=== PATIENT | female | born 2000 | race Caucasian/White ===

== ENCOUNTER 2023-04-29 21:36 | Emergency (ER) | payer SELFPAY ==
--- NOTE | 2023-04-29 21:39 | XRR_ITS ---
PROCEDURE INFORMATION: Exam: XR Chest Exam date and time: 04/29/2023 9:48 PM Age: 22 years old Clinical indication: Pain; Chest pressure; Prior surgery; Surgery date: 6+ months; Surgery type: Amrita rods; Additional info: Cp TECHNIQUE: Imaging protocol: Radiologic exam of the chest. Views: 1 view. COMPARISON: No relevant prior studies available. FINDINGS: Lungs: There is consolidation in the lateral aspect of the left lower lobe consistent with pneumonia. There is also some patchy infiltrate in the retrocardiac left lower lobe. Visualized portions of the right lung are clear. Pleural spaces: Unremarkable. No pleural effusion. No pneumothorax. Heart/Mediastinum: Unremarkable. No cardiomegaly. Bones/joints: There are postsurgical changes in the thoracic spine with bilateral Kilpatrick rods and pedicle screws at multiple levels. XR/XR chest 1V portable [id number] IMPRESSION: Left lower lobe pneumonia.
[2023-04-29 21:40] VITALS: BP 127/78; PULSE 117; RESP 18; TEMP 36.7; O2SAT 96; BMI 17.2
--- NOTE | 2023-04-29 22:01 | ED_ITS ---
HPI - URI/Sore Throat General: Chief Complaint: Upper Respiratory Infection Stated Complaint: chest pain/ sob Time Seen by Provider: 04/29/23 21:41 Source: patient Mode of arrival: ambulatory Limitations: no limitations History of Present Illness: 22-year-old female who states she has been having fevers all body aches cough over the last 5 to 6 days. States she has been having worsening cough and sh ortness of breath today. She denies any vomiting or diarrhea she denies any chest pain she is in slight distress here mild hypoxia. Associated symptoms: Reports fever(s); Deny abdominal pain, chills, chest pain, diarrhea, nausea or vomiting Review of Systems Const: Reports: fever(s) and body aches; Denies: chills or change in appetite Eyes: Denies: blurry vision or eye discomfort ENMT: Denies: throat pain or dental pain Card: Denies: chest pain Resp: Reports: dyspnea and non-productive cough GI: Denies: abdominal pain, nausea, vomiting or diarrhea Musc: Denies: neck pain or back pain Skin/Breast: Denies: rash All/Imm: Denies: urticaria Physical Exam Const: COMMON NORMALS: patient oriented x3 GENERAL APPEARANCE: ill appearing HENMT: COMMON NORMALS: normocephalic and atraumatic HEAD & SCALP: normocephalic and atraumatic Eye: COMMON NORMALS: Equal, round and reactive pupils present and EOMs intact bilaterally PUPIL: Yes Equal, round and reactive pupils present Neck/C-Spine: COMMON NORMALS: full ROM and supple Chest: COMMONS NORMALS: normal inspection of the chest and normal palpation of entire chest wall Resp: COMMON NORMALS: No retractions and No use of accessory muscles AUSCULTATION: rales on the left at the base Cardio: COMMON NORMALS: regular rhythm and No murmurs present (Cardio) RATE: tachycardic RHYTHM: regular rhythm GI: COMMON NORMALS: Normal to inspection, nondistended, normoactive bowel sounds present, Soft to palpation, non-tender and no masses PALPATION: Yes Soft to palpation Extremity: COMMON NORMALS: normal to inspection and full ROM Neuro: COMMON NORMALS: patient oriented x3, moves all extremities and no focal motor deficits Psych: COMMON NORMALS: mental status grossly normal, Normal thought process present and cooperative THOUGHT PROCESS: Normal thought process present Skin: COMMON NORMALS: no rashes or lesions noted and no wounds GENERAL SKIN EXAM: no rashes or lesions noted Course Vital Signs: Vital signs: Vital Signs Temperature 98.0 F 04/29/23 21:40 Pulse Rate 91 04/29/23 22:13 Respiratory Rate 20 H 04/29/23 22:13 Blood Pressure 125/77 04/29/23 22:13 Pulse Oximetry 94 04/29/23 22:13 Oxygen Delivery Me thod Room Air 04/29/23 22:13 MDM - URI/Sore Throat Medical Decision Making Patient presents here with a left lower lobe pneumonia. Oxygen level here has been normal she is afebrile has a normal white count did give her IV antibiotics I did offer her admission she states she would like to trial oral antibiotics at home first. She is not hypoxic here we will discharge her on doxycycline and informed if she has any worsening shortness of breath or worsening symptoms she is to return immediately she understands agrees to plan. Medical Records I reviewed the patient's medical records. Lab Data I reviewed the patient's lab results. 04/29/23 22:19 04/29/23 22:19 Radiology Impressions Chest X-Ray 04/29/23 21:39 IMPRESSION: Left lower lobe pneumonia. Laboratory Results WBC 9.11 10^3/uL (3.29-11.43) 04/29/23 22:19 RBC 4.82 10^6/uL (3.85-5.65) 04/29/23 22:19 Hgb 13.40 g/dL (11.27-16.99) 04/29/23 22:19 Hct 40.9 % (36-47) 04/29/23 22:19 MCV 84.9 fl (85-98) L 04/29/23 22:19 MCH 27.8 pg (27-33) 04/29/23 22:19 MCHC 32.8 g/dL (30-55) 04/29/23 22:19 RDW 13.0 % (12.1-15.1) 04/29/23 22:19 Plt Count 260 10^3/cmm (157-399) 04/29/23 22:19 MPV 9.5 fL (7.4-10.4) 04/29/23 22:19 Neut % (Auto) 76.5 % 04/29/23 22:19 Lymph % (Auto) 12.1 % 04/29/23 22:19 [place] % (Auto) 10.6 % 04/29/23 22:19 Eos % (Auto) 0.4 % 04/29/23 22:19 Baso % (Auto) 0.2 % 04/29/23 22:19 Neut # (Auto) 6.96 10^3/uL (1.8-7.7) 04/29/23 22:19 Lymph # (Auto) 1.1 10^3/uL (0.8-4.8) 04/29/23 22:19 [place] # (Auto) 1.0 10^3/uL (0.2-0.9) H 04/29/23 22:19 Eos # (Auto) 0.0 10^3/uL (0.0-0.8) 04/29/23 22:19 Baso # (Auto) 0.0 10^3/uL (0.0-0.1) 04/29/23 22:19 Nucleated RBC % (auto) 0 % 04/29/23 22:19 Nucleated RBCs # 0.0 /100WBC 04/29/23 22:19 Sodium 134 mmol/L (136-145) L 04/29/23 22:19 Potassium 4.2 mmol/L (3.5-5.1) 04/29/23 22:19 Chloride 97 mmol/L (98-107) L 04/29/23 22:19 Carbon Dioxide 28 mmol/L (22-29) 04/29/23 22:19 Anion Gap 13.2 (5-19) 04/29/23 22:19 BUN 12 mg/dL (6-20) 04/29/23 22:19 Creatinine 0.5 mg/dL (0.5-0.9) 04/29/23 22:19 GFR Calculation 151.6 mL/min (90-130) H 04/29/23 22:19 Glucose 116 mg/dL (65-115) H 04/29/23 22:19 Calculated Osmolality 279 mOsm/kg (285-295) L 04/29/23 22:19 Calcium 9.0 mg/dL (8.5-10.5) 04/29/23 22:19 Total Bilirubin 0.3 mg/dL (0.15-1.2) 04/29/23 22:19 AST 21 U/L (0-32) 04/29/23 22:19 ALT 14 U/L (0-33) 04/29/23 22:19 Alkaline Phosphatase 82 U/L (35-105) 04/29/23 22:19 Total Protein 7.6 g/dL (6.6-8.7) 04/29/23 22:19 Albumin 4.4 g/dL (3.5-5.2) 04/29/23 22:19 Globulin 3.2 g/dL (1.3-4.6) 04/29/23 22:19 HCG, Qual Negative (Negative) 04/29/23 22:19 Discharge Plan Discharge Patient Disposition: Home Clinical Impression: Pneumonia Condition: Stable Prescriptions: New doxycycline hyclate 100 mg tablet 100 mg PO BID 10 Days Qty: 20 0RF Discharge Orders: Discharge ED (Routine); Ordered 04/29/23 Ordered By: Luis Vernon Discharge Diet: Advance as tolerated Discharge Activity: Resume usual activity Patient Instructions: Pneumonia (ED) Coding Level of Care Code ED [employer] for Demetri Calloway
[2023-04-29 22:13] VITALS: BP 125/77; PULSE 91; RESP 20; O2SAT 94
[2023-04-29] MEDS: sodium chloride 0.9% 1,000 ML 999 ML IV (22:24)
[2023-04-29] MEDS: cefTRIAXone 1,000 MG in sodium chloride 0.9% (plus) 50 ML 100 MG IV (22:24)
[2023-04-29 22:34] LABS: Basophils % 0.2 %; Eosinophils % 0.4 %; Hematocrit 40.9 % (36-47); Lymphocytes # 1.1 10^3/uL (0.8-4.8); Lymphocytes % 12.1 %; Mean Corpuscular HGB Conc 32.8 g/dL (30-55); Mean Corpuscular Hemoglobin 27.8 pg (27-33); Mean Corpuscular Volume 84.9 fl (85-98); Mean Platelet Volume 9.5 fL (7.4-10.4); Monocytes % 10.6 %; Neutrophils # 6.96 10^3/uL (1.8-7.7); Neutrophils % 76.5 %; Nucleated Red Blood Cells % 0 %; Platelet Count 260 10^3/cmm (157-399); Red Blood Count 4.82 10^6/uL (3.85-5.65); White Blood Count 9.11 10^3/uL (3.29-11.43)
[2023-04-29 22:46] LABS: HCG, Serum Qual Negative (Negative)
[2023-04-29] MEDS: azithromycin 500 MG in sodium chloride 0.9% 250 ML 250 MG IV (22:49)
[2023-04-29 22:51] LABS: Alanine Aminotransferase 14 U/L (0-33); Albumin Level 4.4 g/dL (3.5-5.2); Alkaline Phosphatase 82 U/L (35-105); Anion Gap 13.2 (5-19); Aspartate Amino Transferase 21 U/L (0-32); Blood Urea Nitrogen 12 mg/dL (6-20); Carbon Dioxide 28 mmol/L (22-29); Chloride 97 mmol/L (98-107); Globulin 3.2 g/dL (1.3-4.6); Glomerular Filtration Rate 151.6 mL/min (90-130); Glucose 116 mg/dL (65-115); Osmolality Calculated 279 mOsm/kg (285-295); Potassium 4.2 mmol/L (3.5-5.1); Sodium 134 mmol/L (136-145); Total Bilirubin 0.3 mg/dL (0.15-1.2); Total Protein 7.6 g/dL (6.6-8.7)
[2023-04-29 23:19] VITALS: BP 107/67; PULSE 96; RESP 17; O2SAT 96
[2023-04-29 23:55] LABS: Adenovirus Not Detected (NOT DETECT); Chlamydia Pneumoniae Not Detected (NOT DETECT); Coronavirus 229E,HKU1,NL63,OC4 Not Detected (NOT DETECT); Human Metapneumovirus Not Detected (NOT DETECT); Human Rhinovirus/Enterovirus Not Detected (NOT DETECT); Influenza A Not Detected (NOT DETECT); Influenza A H1 Not Detected (NOT DETECT); Influenza A H1-2009 Not Detected (NOT DETECT); Influenza A H3 Not Detected (NOT DETECT); Influenza B Not Detected (NOT DETECT); Mycoplasma Pneumoniae Not Detected (NOT DETECT); Parainfluenza Virus Type 1 Not Detected (NOT DETECT); Parainfluenza Virus Type 2 Not Detected (NOT DETECT); Parainfluenza Virus Type 3 Not Detected (NOT DETECT); Parainfluenza Virus Type 4 Not Detected (NOT DETECT); Respiratory Syncytial Virus A Not Detected (NOT DETECT); Respiratory Syncytial Virus B Not Detected (NOT DETECT); SARS-COV-2 Not Detected (NOT DETECT)
[2023-04-29 23:56] VITALS: BP 107/74; PULSE 103; RESP 22; O2SAT 98
== END 2023-04-29 23:57 | disposition home or self-care (01) ==
PROVIDERS: Emergency Provider Emergency Medicine
DX: J18.9 Pneumonia, unspecified organism (principal); Z20.822 Contact with and (suspected) exposure to COVID-19
CPT/HCPCS: 36415; 71045; 80053; 84703; 85025; 87040; 87635; 96365; 96367; 99285; J0456; J0696; J7030; J7050

== ENCOUNTER 2023-08-14 00:49 | Emergency (ER) | payer SELFPAY ==
[2023-08-14 00:59] VITALS: BP 134/84; PULSE 68; RESP 14; TEMP 36.3; O2SAT 99
--- NOTE | 2023-08-14 01:06 | XRR_ITS ---
PROCEDURE INFORMATION: Exam: XR Left Wrist Exam date and time: 08/14/2023 1:11 AM Age: 22 years old Clinical indication: Wrist; Left; Patient HX: Carpal pain; Additional info: Fall/pain TECHNIQUE: Imaging protocol: Radiologic exam of the left wrist. Views: 3 or more views. COMPARISON: No relevant prior studies available. FINDINGS: Bones/joints: Acute nondisplaced fracture of the distal dorsoulnar aspect of the hamate. Soft tissues: Mild regional soft tissue swelling about the fracture. XR/XR wrist LT min 3V* [id number] IMPRESSION: Acute nondisplaced fracture of the distal dorsoulnar aspect of the hamate.
--- NOTE | 2023-08-14 01:06 | W.ED.EXTPRO ---
HPI - Extremity Problem General: Chief complaint: Extremity Injury, Upper Stated complaint: Rt Wrist Injury Time Seen by Provider: 08/14/23 00:55 History of Present Illness: 22-year-old female presents to the emergency department with complaints of left wrist pain. She states she had an accidental misstep and tripped over her foot following with her hand stretched out causing her to have left wrist pain. She states she is able to move it but states it feels like it is intermittently having muscle pain twinges. She has no obvious or gross deformity noted. Capillary refills less than 3 seconds. She denies any additional injuries. She states her pain is more of a throbbing type pain that is a 2 out of 10. Review of Systems General: Reports: 10 or more systems reviewed and unremarkable except in HPI and below Musc: Reports: extremity pain and joint pain [facility] ED PFSH: Medical History (Updated 09/10/23 @ 06:35 by Ryan Ferguson MD) LLL pneumonia Back pain with history of spinal surgery Scoliosis Family History (Updated 05/23/23 @ 10:13 by Francesca Thao LPN) Father Thao infection Mother No problems noted. Social History (Updated 05/23/23 @ 10:13 by Francesca Thao LPN) Smoking and tobacco/nicotine status: never used tobacco/nicotine Alcohol intake: never Substance/Drug Use: never Physical Exam Narrative: EXAM NARRATIVE: Constitutional: the patient appears well nourished and of normal development. Vital signs as documented. No acute distress at present. Alert and oriented-to person, place, time and situation. Head, eyes, ears, nose, mouth, throat: Normocephalic, atraumatic. Pupils-equal, round, reactive to light. No scleral icterus. Normal-appearing external ears. Normal appearing nasal turbinates, no drainage. No obvious oral lesions, posterior oropharynx without erythema or exudates. Neck: Supple, trachea is midline, no lymphadenopathy, no jugular venous distension, thyromegaly, or carotid bruits. Carotid upstrokes are brisk bilaterally. Lungs: clear to auscultation to all lung jimenez. Symmetrical rise and fall of chest, no obvious signs of increased work of breathing at present. Cardiac: Regular rate and rhythm, positive S1, S2. No murmurs, rubs or gallops that I can appreciate Abdomen: Soft, non-tender to palpation, normal active bowel sounds to all quadrants. No palpable masses, no organomegaly and abdominal bruits. Extremities: 2+ pulses in the upper extremities that are equal bilaterally, 2+ pulses in the lower extremities that are equal bilaterally. Non-edematous. Moves all extremities well, sensation to all extremities are noted. Left wrist medial aspect tender to palpation Skin: Warm, dry, intact. Course ED course: I reviewed the radiographic examination and determined the need for stabilization via splint. A left Velcro wrist splint was utilized. The splint was ordered and placed by the nursing staff, under the direct supervision of myself (ER Physician. The patient's neurovascular status was evaluated and was intact before and after the application of the splint. Capillary refill was less than 3 seconds before and after the application. The patient was splinted and the most appropriate anatomical and functional position at that time. Anticipatory guidance, return precautions and red flag precautions were provided to the patient and support person. The patient/support person was advised to contact the patient's primary care provider or Orthopedic provider to make a follow-up appointment for additional evaluation and treatment within the next 3-5 days. Vital Signs: Vital signs: Vital Signs Temperature 97.4 F L 08/14/23 00:59 Pulse Rate 78 08/14/23 01:55 Respiratory Rate 14 08/14/23 00:59 Blood Pressure 134/84 08/14/23 00:59 Pulse Oximetry 100 08/14/23 01:55 Oxygen Delivery Me thod Room Air 08/14/23 00:59 MDM - Extremity (Nontraumatic) Medical Decision Making Physical exam completed and documented, I will provide radiographic examination and a splint. Medical Records I reviewed the patient's medical records. Lab Data Radiology Impressions Wrist X-Ray 08/14/23 01:06 IMPRESSION: Acute nondisplaced fracture of the distal dorsoulnar aspect of the hamate. All radiology interpretation(s) finalized by discharge Discharge Plan Discharge Patient Disposition: Home Clinical Impression: Sprain and strain of wrist, Fracture of wrist Condition: Stable Prescriptions: No Action No Known Home Medications Discharge Orders: Discharge ED (Routine); Ordered 08/14/23 Ordered By: Ryan Ferguson Discharge Diet: Advance as tolerated Discharge Activity: Resume usual activity Patient Instructions: Opioid Safety, Pain Management Activity Restrictions/Additional Instructions: Activity Restrictions/Additional Instructions: Thank you for choosing [facility] for your healthcare needs today. Please realize that you were seen in the Emergency Department and that we are providing you with an emergency medical screening exam and this may not be a complete and all inclusive of all the testing and or medical work-up that you may need to determine your ailment or severity of your illness. It is very important that you follow-up as instructed with your Primary care provider or Specialist for additional evaluation and to discuss your medical treatment plan. You may return to the Emergency Department should you have concerns or if your condition changes or worsens in any way. Coding Level of Care Code ED Custodial Maintenance Worker for Demetri Calloway
[2023-08-14 01:55] VITALS: PULSE 78; O2SAT 100
== END 2023-08-14 01:57 | disposition home or self-care (01) ==
PROVIDERS: Emergency Provider Internal Medicine
DX: S63.502A Unspecified sprain of left wrist, initial encounter (principal); S66.912A Strain of unspecified muscle, fascia and tendon at wrist and hand level, left hand, initial encounter; S62.145A Nondisplaced fracture of body of hamate [unciform] bone, left wrist, initial encounter for closed fracture; W18.09XA Striking against other object with subsequent fall, initial encounter
CPT/HCPCS: 73110; 99283

== ENCOUNTER 2023-09-11 20:02 | Emergency (ER) | payer SELFPAY ==
--- NOTE | 2023-09-11 20:05 | XRR_ITS ---
PROCEDURE INFORMATION: Exam: XR Chest Exam date and time: 09/11/2023 8:16 PM Age: 22 years old Clinical indication: Cough TECHNIQUE: Imaging protocol: Radiologic exam of the chest. Views: 1 view. COMPARISON: CR (CHEST, ) 04/29/2023 9:48 PM FINDINGS: Lungs: Mild atelectasis or infiltrate at the lung bases. Pleural spaces: Unremarkable. No pleural effusion. No pneumothorax. Heart/Mediastinum: Unremarkable. No cardiomegaly. Bones/joints: Kilpatrick rods. XR/XR chest 1V portable [id number] IMPRESSION: Mild bibasilar atelectasis or infiltrates.
[2023-09-11 20:42] VITALS: BP 108/76; PULSE 102; RESP 16; TEMP 37.1; O2SAT 99
--- NOTE | 2023-09-11 21:29 | W.ED.GENADLT ---
HPI - General Adult General: Chief complaint: General Medical Stated complaint: sob, hard coughing with mucus Time Seen by Provider: 09/11/23 21:09 Source: patient Mode of arrival: ambulatory Limitations: no limitations History of Present Illness: 22-year-old female states that she has had cough congestion with some yellow mucus last 2 days states her symptoms are actually improved today denies any fever denies any dyspnea she denies any worsening improving factors. She has had sick contacts. Associated symptoms: Deny chest pain, dyspnea, headache(s), nausea, rash or vomiting Review of Systems Const: Denies: fever(s), chills, body aches or change in appetite ENMT: Denies: throat pain or dental pain Card: Denies: chest pain Resp: Reports: non-productive cough; Denies: dyspnea GI: Denies: abdominal pain, nausea, vomiting or diarrhea Musc: Denies: neck pain or back pain Skin/Breast: Denies: rash Neuro: Denies: headache(s) PFS ED PFSH: Medical History LLL pneumonia Back pain with history of spinal surgery Scoliosis Family History Father Thao infection Mother No problems noted. Social History Smoking and tobacco/nicotine status: never used tobacco/nicotine Alcohol intake: never Substance/Drug Use: never Physical Exam Const: COMMON NORMALS: no acute distress, patient oriented x3 and healthy appearing HENMT: COMMON NORMALS: normocephalic and atraumatic HEAD & SCALP: normocephalic and atraumatic Eye: COMMON NORMALS: Equal, round and reactive pupils present and EOMs intact bilaterally PUPIL: Yes Equal, round and reactive pupils present Neck/C-Spine: COMMON NORMALS: full ROM and supple Chest: COMMONS NORMALS: normal inspection of the chest Resp: COMMON NORMALS: normal respiratory effort, No retractions, No use of accessory muscles and clear to auscultation bilaterally AUSCULTATION: clear to auscultation bilaterally Cardio: COMMON NORMALS: regular rate, regular rhythm and No murmurs present (Cardio) RATE: regular rate RHYTHM: regular rhythm Extremity: COMMON NORMALS: normal to inspection and full ROM Neuro: COMMON NORMALS: patient oriented x3, moves all extremities and no focal motor deficits Psych: COMMON NORMALS: mental status grossly normal, Normal thought process present and cooperative THOUGHT PROCESS: Normal thought process present Skin: COMMON NORMALS: no rashes or lesions noted and no wounds GENERAL SKIN EXAM: no rashes or lesions noted Course Vital Signs: Vital signs: Vital Signs Temperature 98.8 F 09/11/23 20:42 Pulse Rate 102 H 09/11/23 20:42 Respiratory Rate 16 09/11/23 20:42 Blood Pressure 108/76 09/11/23 20:42 Pulse Oximetry 99 09/11/23 20:42 MDM - General Adult Medical Decision Making Patient presents here with influenza x-ray shows no pneumonia she is stable for discharge follow-up with PCP and return if worsening Medical Records I reviewed the patient's medical records. Lab Data I reviewed the patient's lab results. Laboratory Results Influenza Type A Ag positive (Negative) H 09/11/23 21:15 Influenza Type B Ag negative (Negative) 09/11/23 21:15 SARS-CoV-2 Ag (Rapid) negative (Negative) 09/11/23 21:15 XR interpretation done by ED provider, pending radiology final review ED provider radiology interpretation(s): cxr: no acute abnormality Discharge Plan Discharge Patient Disposition: Home Clinical Impression: Influenza Condition: Stable Prescriptions: No Action No Known Home Medications Discharge Orders: Discharge ED (Routine); Ordered 09/11/23 Ordered By: Luis Vernon Discharge Diet: Advance as tolerated Discharge Activity: Resume usual activity Patient Instructions: Influenza (ED) Coding Level of Care Code ED Laundry Route Driver for Demetri Calloway
[2023-09-11 21:32] LABS: Influenza A by IFA positive (Negative); Influenza B by IFA negative (Negative)
[2023-09-11 21:44] LABS: SARS Covid-2 Antigen negative (Negative)
[2023-09-11 22:03] VITALS: BP 108/76; PULSE 102; RESP 16; TEMP 37.1; O2SAT 99
== END 2023-09-11 22:04 | disposition home or self-care (01) ==
PROVIDERS: Emergency Provider Emergency Medicine
DX: J11.1 Influenza due to unidentified influenza virus with other respiratory manifestations (principal); Z11.52 Encounter for screening for COVID-19
CPT/HCPCS: 71045; 87426; 87804; 99284

== ENCOUNTER → 2024-07-20 14:58 | Outpatient (BNVA) | payer SELFPAY | DX: R39.9 Unspecified symptoms and signs involving the genitourinary system (principal) | CPT/HCPCS: 81000 ==

== ENCOUNTER → 2024-08-10 14:33 | Outpatient (BNVA) | payer OTHER, SELFPAY | PROVIDERS: Visit Provider Registered Nurse Neonatal Intensive Care | DX: R39.9 Unspecified symptoms and signs involving the genitourinary system (principal); N39.0 Urinary tract infection, site not specified | CPT/HCPCS: 81000; 87086 ==

== ENCOUNTER 2025-02-12 10:28 | Inpatient (IN) | payer SELFPAY ==
[2025-02-12] VITALS (27 sets, daily range): BP systolic 80–111; BP diastolic 50–72; PULSE 73–120; RESP 16–31; TEMP 36.6–39.4; O2SAT 93–100; BMI 19.3
--- NOTE | 2025-02-12 10:37 | XRR_ITS ---
PROCEDURE INFORMATION: Exam: XR Chest Exam date and time: 02/12/2025 10:48 AM Age: 24 years old Clinical indication: Shortness of breath; Prior surgery; Surgery date: 6+ months; Surgery type: Amrita rods; SOB; Abdominal pain TECHNIQUE: Imaging protocol: Radiologic exam of the chest. Views: 1 view. COMPARISON: CR XR chest 1V portable [id number] 09/11/2023 8:16 PM FINDINGS: Lungs: Mild left basilar atelectasis. No focal consolidation. Pleural spaces: Unremarkable. No pleural effusion. No pneumothorax. Heart/Mediastinum: Unremarkable. No cardiomegaly. Bones/joints: No acute osseous abnormality. Stable Kilpatrick rods in the thoracic spine. XR/XR chest 1V portable [id number] IMPRESSION: Mild left basilar atelectasis. No focal consolidation or pneumothorax.
--- NOTE | 2025-02-12 10:44 | ED_ITS ---
HPI - Abdominal Pain 2 General: Chief Complaint: Abdominal Pain Stated Complaint: constipated Time Seen by Provider: 02/12/25 10:32 History of Present Illness: 24-year-old female who presents the [facility] room with complaints of constipation, nausea and vomiting, and fever. She says she was constipated and took some medication for it yesterday and had a bowel movement but still feels like she is constipated. She has been having low mid abdominal pain. Says she has not been able to keep anything down since yesterday. states she had a temp of 103 at home. He has been treating it and its come down some. Related Data Home Medications ?Medication ?Instructions ?Recorded ?Confirmed ibuprofen 200 mg tablet (Advil) 400 mg PO Q6H PRN Feve r Or Pain 02/12/25 02/12/25 Allergies Allergy/AdvReac Type Severity Reaction Status Date / Time No Known Allergies Allergy Verified 08/10/24 14:28 Review of Systems 2 Narrative: Constitutional symptoms: Negative except as documented in HPI. Skin symptoms: Negative except as documented in HPI. Eye symptoms: Negative except as documented in HPI. ENMT symptoms: Negative except as documented in HPI. Respiratory symptoms: Negative except as documented in HPI. Cardiovascular symptoms: Negative except as documented in HPI. Gastrointestinal symptoms: Negative except as documented in HPI. Genitourinary symptoms: Negative except as documented in HPI. Musculoskeletal symptoms: Negative except as documented in HPI. Neurologic symptoms: Negative except as documented in HPI. Psychiatric symptoms: Negative except as documented in HPI. Endocrine symptoms: Negative except as documented in HPI. PFSH ED 2 PFSH: Medical History LLL pneumonia Back pain with history of spinal surgery Scoliosis Family History Father Thao infection Mother No problems noted. Social History Smoking and tobacco/nicotine status: never used tobacco/nicotine Alcohol intake: never Substance/Drug Use: never Physical Exam 2 Narrative: EXAM NARRATIVE: General: Alert, no acute distress. Skin: Warm, dry. Head: Normocephalic, atraumatic. Neck: Supple, trachea midline. Eye: Extraocular movements are intact. Ears, nose, mouth and throat: Tacky oral mucosa Cardiovascular: Regular, Normal peripheral perfusion. Respiratory: Lungs are clear to auscultation, respirations are non-labored, breath sounds are equal, Symmetrical chest wall expansion. Gastrointestinal: Soft, some low central abdominal tenderness, Non distended Musculoskeletal: Normal ROM, no deformity. Neurological: Alert and oriented, No focal neurological deficit observed. Psychiatric: Cooperative, appropriate mood & affect. Course 2 Vital Signs: Vital signs: Vital Signs Temperature 97.9 F 02/12/25 10:42 Pulse Rate 109 H 02/12/25 10:42 Respiratory Rate 18 02/12/25 10:42 Blood Pressure 106/71 02/12/25 10:42 Pulse Oximetry 97 02/12/25 10:42 Oxygen Delivery Me thod Room Air 02/12/25 10:42 MDM - Abdominal Pain Medical Decision Making Medical decision making: Differential diagnosis for this patient with nausea and vomiting including but not limited to and based on the above HPI, review of systems and physical exam: Urinary tract infection. Appendicitis. Cholecystitis. Colitis. small bowel obstruction. crohn's flare. pancreatitis. gastritis. peptic ulcer. cyclic vomiting. Viral illness. Influenza. COVID. Orders placed to evaluate differential diagnosis based on the above differential, HPI and physical exam Lab Review: Laboratory results were reviewed and interpreted by myself the emergency room physician. Patient has significant leukocytosis with a white count of 26,000. Lactate is negative at 1.1. Urinalysis is positive for infection with 50-100 whites leukocyte Estrace positive and 2+ bacteria. Nitrate negative. CT of the chest abdomen pelvis with contrast: This was ordered to evaluate for source of sepsis. She was complaining of some right chest pain. Left flank pain. This shows left pyelonephritis which is consistent with exam. This was reviewed and interpreted by myself the emergency room physician. I also reviewed the radiology report. I reviewed the patient's medical record. Reexamination: Patient's blood pressure is in the 90 systolic upon admission. No altered mental status. No increased work of breathing. I discussed findings and admission with the patient and her Consultation: I spoke with Dr. Nunez who is on-call for the hospital service who agrees to admission. Assessment and plan: Pyelonephritis Sepsis ?Urinary source of sepsis/pyelonephritis. -2 L normal saline bolus. (30 mL/kg section 1.3 L but just rounded up to 2 L.) -antibiotics were administered. Cefepime -Sepsis quality measures. -Lactic acid with a reflex was ordered. -Blood cultures were ordered. -I discussed the patient with the hospitalist on-call who is admitting the patient. - Discussed findings and plan with patient. Answered any questions. - All laboratory values were reviewed and interpreted personally by myself, the ER physician - All imaging was reviewed and interpreted personally by myself, the ER physician. - Evaluation and treatment of this problem were appropriate in the emergency setting Lab Data 02/12/25 11:14 02/12/25 11:14 Labs/Radiology: Radiology Impressions Chest X-Ray 02/12/25 10:37 IMPRESSION: Mild left basilar atelectasis. No focal consolidation or pneumothorax. Chest/Abdomen/Pelvis CT 02/12/25 11:48 IMPRESSION: No acute thoracic finding. IMPRESSION: 1. Abnormal left kidney suggesting pyelonephritis. Clinical correlation is advised. 2. Bilateral adnexal hypodense lesions suggesting ovarian cysts. Ultrasound follow-up can be obtained for further evaluation. Laboratory Results WBC 26.31 10^3/uL (3.29-11.43) H 02/12/25 11:14 RBC 4.14 10^6/uL (3.85-5.65) 02/12/25 11:14 Hgb 12.00 g/dL (11.27-16.99) 02/12/25 11:14 Hct 36.4 % (36-47) 02/12/25 11:14 MCV 87.9 fl (85-98) 02/12/25 11:14 MCH 29.0 pg (27-33) 02/12/25 11:14 MCHC 33.0 g/dL (30-55) 02/12/25 11:14 RDW 13.0 % (12.1-15.1) 02/12/25 11:14 Plt Count 183 10^3/cmm (157-399) 02/12/25 11:14 MPV 9.5 fL (7.4-10.4) 02/12/25 11:14 Neut % (Auto) 86.0 % 02/12/25 11:14 Lymph % (Auto) 1.7 % 02/12/25 11:14 [place] % (Auto) 10.8 % 02/12/25 11:14 Eos % (Auto) 0.1 % 02/12/25 11:14 Baso % (Auto) 0.2 % 02/12/25 11:14 Neut # (Auto) 22.62 10^3/uL (1.8-7.7) H 02/12/25 11:14 Lymph # (Auto) 0.5 10^3/uL (0.8-4.8) L 02/12/25 11:14 [place] # (Auto) 2.8 10^3/uL (0.2-0.9) H 02/12/25 11:14 Eos # (Auto) 0.0 10^3/uL (0.0-0.8) 02/12/25 11:14 Baso # (Auto) 0.1 10^3/uL (0.0-0.1) 02/12/25 11:14 Nucleated RBC % (auto) 0 % 02/12/25 11:14 Nucleated RBCs # 0.0 /100WBC 02/12/25 11:14 Sodium 132 mmol/L (136-145) L 02/12/25 11:14 Potassium 3.5 mmol/L (3.5-5.1) 02/12/25 11:14 Chloride 97 mmol/L (98-107) L 02/12/25 11:14 Carbon Dioxide 21 mmol/L (22-29) L 02/12/25 11:14 Anion Gap 17.5 (5-19) 02/12/25 11:14 BUN 16 mg/dL (6-20) 02/12/25 11:14 Creatinine 0.6 mg/dL (0.5-0.9) 02/12/25 11:14 GFR Calculation 120.8 mL/min (90-130) 02/12/25 11:14 Glucose 101 mg/dL (65-115) 02/12/25 11:14 Calculated Osmolality 275 mOsm/kg (285-295) L 02/12/25 11:14 Lactic Acid 1.1 mmol/L (0.5-2.2) 02/12/25 11:14 Calcium 8.6 mg/dL (8.5-10.5) 02/12/25 11:14 Total Bilirubin 0.5 mg/dL (0.15-1.2) 02/12/25 11:14 AST 12 U/L (0-32) 02/12/25 11:14 ALT 7 U/L (0-33) 02/12/25 11:14 Alkaline Phosphatase 88 U/L (35-105) 02/12/25 11:14 C-Reactive Protein 222.7 mg/L (0.0-4.9) H 02/12/25 11:14 Total Protein 6.8 g/dL (6.6-8.7) 02/12/25 11:14 Albumin 3.5 g/dL (3.5-5.2) 02/12/25 11:14 Globulin 3.3 g/dL (1.3-4.6) 02/12/25 11:14 HCG, Qual Negative (Negative) 02/12/25 11:14 Urine Color Yellow (Yellow) 02/12/25 12:24 Urine Appearance Clear (CLEAR) 02/12/25 12:24 Urine pH 6.0 (5-7) 02/12/25 12:24 Ur Specific [place] 1.063 (1.005-1.030) H 02/12/25 12:24 Urine Protein 2+ (Negative) A 02/12/25 12:24 Urine Glucose (UA) Negative (Normal) 02/12/25 12:24 Urine Ketones 3+ (Negative) H 02/12/25 12:24 Urine Blood Trace (Negative) A 02/12/25 12:24 Urine Nitrate Negative (Negative) 02/12/25 12:24 Urine Bilirubin Negative (Negative) 02/12/25 12:24 Urine Urobilinogen 1.0 mg/dL (Negative) 02/12/25 12:24 Ur Leukocyte Esterase 2+ (Negative) A 02/12/25 12:24 Urine RBC 0-2 /hpf (0-2) 02/12/25 12:24 Urine WBC 51-100 /hpf (0-5) H 02/12/25 12:24 Ur Squamous Epith Cells 11-20 /hpf (0-5) H 02/12/25 12:24 Amorphous Sediment Not Reportable 02/12/25 12:24 Urine Bacteria 2+ /hpf (NONE) H 02/12/25 12:24 Hyaline Casts 2.05 /lpf 02/12/25 12:24 Influenza A (PCR) Negative (Negative) 02/12/25 10:55 Influenza Type B (PCR) Negative (Negative) 02/12/25 10:55 RSV (PCR) Negative (Negative) 02/12/25 10:55 SARS-CoV-2 (PCR) Negative (Negative) 02/12/25 10:55 All radiology interpretation(s) finalized by discharge Discharge Plan Discharge Patient Disposition: Admitted As Inpatient Clinical Impression: Pyelonephritis, Sepsis Condition: Stable Coding Level of Care Code ED Branch Lead for Demetri Calloway
[2025-02-12] MEDS: ondansetron 2 mg/ML SDV 2 mL 4 MG IVP (11:20)
[2025-02-12] MEDS: sodium chloride 0.9% 1,000 ML 999 ML IV ×2 (11:20→13:24)
[2025-02-12 11:26] LABS: Basophils # 0.1 10^3/uL (0.0-0.1); Basophils % 0.2 %; Eosinophils % 0.1 %; Hematocrit 36.4 % (36-47); Lymphocytes # 0.5 10^3/uL (0.8-4.8); Lymphocytes % 1.7 %; Mean Corpuscular Volume 87.9 fl (85-98); Mean Platelet Volume 9.5 fL (7.4-10.4); Monocytes # 2.8 10^3/uL (0.2-0.9); Monocytes % 10.8 %; Neutrophils # 22.62 10^3/uL (1.8-7.7); Nucleated Red Blood Cells % 0 %; Platelet Count 183 10^3/cmm (157-399); Red Blood Count 4.14 10^6/uL (3.85-5.65); White Blood Count 26.31 10^3/uL (3.29-11.43)
[2025-02-12 11:32] LABS: HCG, Serum Qual Negative (Negative)
[2025-02-12 11:42] LABS: Alanine Aminotransferase 7 U/L (0-33); Albumin Level 3.5 g/dL (3.5-5.2); Alkaline Phosphatase 88 U/L (35-105); Anion Gap 17.5 (5-19); Aspartate Amino Transferase 12 U/L (0-32); Blood Urea Nitrogen 16 mg/dL (6-20); C Reactive Protein 222.7 mg/L (0.0-4.9); Calcium 8.6 mg/dL (8.5-10.5); Carbon Dioxide 21 mmol/L (22-29); Chloride 97 mmol/L (98-107); Creatinine Clr Calc Pharmacy 97.6739; Globulin 3.3 g/dL (1.3-4.6); Glomerular Filtration Rate 120.8 mL/min (90-130); Glucose 101 mg/dL (65-115); Osmolality Calculated 275 mOsm/kg (285-295); Potassium 3.5 mmol/L (3.5-5.1); Sodium 132 mmol/L (136-145); Total Bilirubin 0.5 mg/dL (0.15-1.2); Total Protein 6.8 g/dL (6.6-8.7)
[2025-02-12 11:44] LABS: Lactic Sepsis W/Reflex 1.1 mmol/L (0.5-2.2)
--- NOTE | 2025-02-12 11:48 | CTR_ITS ---
PROCEDURE INFORMATION: Exam: CT Chest With Contrast; Diagnostic Exam date and time: 02/12/2025 12:08 PM Age: 24 years old Clinical indication: Abdominal tenderness; Dyspnea; Prior surgery; Surgery date: 6+ months; Surgery type: Kilpatrick rods; Additional info: Sepsis TECHNIQUE: Imaging protocol: Diagnostic computed tomography of the chest with contrast. Radiation optimization: All CT scans at this facility use at least one of these dose optimization techniques: automated exposure control; mA and/or kV adjustment per patient size (includes targeted exams where dose is matched to clinical indication); or iterative reconstruction. Contrast material: OMNIPAQUE 350; Contrast volume: 80 ml; Contrast route: INTRAVENOUS (IV); COMPARISON: CR XR chest 1V portable [id number] 02/12/2025 10:48 AM RADIATION DOSE METRICS: Total DLP (mGy-cm): 684.56 FINDINGS: Lungs: No pulmonary consolidation. Pleural spaces: Unremarkable. No pneumothorax. No pleural effusion. Heart: Unremarkable. No cardiomegaly. No pericardial effusion. Lymph nodes: Unremarkable. No enlarged lymph nodes. Vasculature: Unremarkable. No aortic aneurysm. Bones/joints: Thoracic spinal fixation is seen. Soft tissues: Unremarkable. PROCEDURE INFORMATION: Exam: CT Abdomen And Pelvis With Contrast Exam date and time: 02/12/2025 12:08 PM Age: 24 years old Clinical indication: Abdominal tenderness; Dyspnea; Prior surgery; Surgery date: 6+ months; Surgery type: Kilpatrick rods; Additional info: Sepsis TECHNIQUE: Imaging protocol: Computed tomography of the abdomen and pelvis with contrast. Radiation optimization: All CT scans at this facility use at least one of these dose optimization techniques: automated exposure control; mA and/or kV adjustment per patient size (includes targeted exams where dose is matched to clinical indication); or iterative reconstruction. Contrast material: OMNIPAQUE 350; Contrast volume: 80 ml; Contrast route: INTRAVENOUS (IV); COMPARISON: CR XR chest 1V portable [id number] 02/12/2025 10:48 AM RADIATION DOSE METRICS: Total DLP (mGy-cm): 684.56 FINDINGS: Liver: Normal. No mass. Gallbladder and biliary ducts: Normal. No calcified stones. No ductal dilation. Pancreas: Normal. No ductal dilation. Spleen: Normal. No splenomegaly. Adrenal glands: Normal. No mass. Kidneys and ureters: Ill-defined hypodense areas are seen involving the left kidney. No hydronephrosis. Stomach and bowel: No small bowel loop dilatation. Appendix: Appendix is normal. Intraperitoneal space: Unremarkable. No free air. No significant fluid collection. Vasculature: Unremarkable. No abdominal aortic aneurysm. Lymph nodes: Unremarkable. No enlarged lymph nodes. Urinary bladder: Unremarkable as visualized. Reproductive: Large right adnexal hypodense lesion is seen protruding into the lower abdomen measuring 7.9 x 9 cm. There is a left adnexal hypodense lesion measuring 2 x 2.5 cm. Bones/joints: Unremarkable. No acute fracture. Soft tissues: Unremarkable. CT/CT chest abdpel w/*[id number] IMPRESSION: No acute thoracic finding. IMPRESSION: 1. Abnormal left kidney suggesting pyelonephritis. Clinical correlation is advised. 2. Bilateral adnexal hypodense lesions suggesting ovarian cysts. Ultrasound follow-up can be obtained for further evaluation.
[2025-02-12 12:01] LABS: Influenza A NEGATIVE (Negative); Influenza B NEGATIVE (Negative); Respiratory Syncytial Virus Ce NEGATIVE (Negative); SARS-CoV-2 PCR NEGATIVE (Negative)
[2025-02-12] MEDS: iohexol 350 mg/mL 500 mL Btl (per mL) IV (12:08)
[2025-02-12 12:34] LABS: Bilirubin Urine Negative (Negative); Blood Urine Trace (Negative); Glucose Urine UA Negative (Normal); Ketones Urine 3+ (Negative); Leukocyte Esterase Urine 2+ (Negative); Nitrate Urine Negative (Negative); Protein Urine 2+ (Negative); Urine Appearance Clear (CLEAR); Urine Color Yellow (Yellow)
[2025-02-12 12:51] LABS: Bacteria Urine 2+ /hpf; Hyaline Casts Urine 2.05 /lpf; RBC Urine 0-2 /hpf (0-2); WBC Urine 51-100 /hpf (0-5)
[2025-02-12 13:05] LABS: Specific Gravity, Urine 1.063 (1.005-1.030); UA Slide Review UA Slide Review Perf
[2025-02-12] MEDS: cefepime 2,000 mg SDV 2000 MG IVP (13:43)
--- NOTE | 2025-02-12 16:28 | P.HP_ITS ---
Providers/Chief Complaint 2 Admitting Physician: Gifty Nunez MD Chief Complaint: constipated History of Present Illness Nanda Hamilton is a 24 year old female With a past medical history of scoliosis status post reconstructive surgery of the spine, presenting to the hospital currently with 4 days of abdominal pain. Patient states that the pain started initially in the abdomen, was also present in the left flank. Then developed fever up to 101 at home. She had been constipated and took some laxatives at home she had a small bowel movement this morning without any improvement in symptoms., Presented to the emergency room with above symptoms. CT of the abdomen and pelvis was performed which was negative for acute appendicitis cholecystitis or any other GI events. Note was made of left-sided pyelonephritis without hydronephrosis. Patient does not have any known history of kidney stones. UA showed 2+ leukocyte Estrace, 51-100 WBCs 2+ bacteria though also with squamous epithelial cells 11-20 therefore uncertain if this is a clean-catch specimen. Blood culture has been taken and pending in the emergency room. Initially upon arrival patient was tachycardic with heart rate in the 120s. Review of systems is positive for epigastric pain, mild chest discomfort. She saturating 98% on room air. Denies any shortness of breath. Review of Systems 2 General: Reports: 10 or more systems reviewed and unremarkable except in HPI and below Const: Denies: fever(s), chills or body aches Eyes: Denies: change in vision, blurry vision or photophobia ENMT: Reports: hoarseness; Denies: throat pain, enlarged tonsils, odynophagia or nasal congestion Card: Denies: chest pain, palpitations, irregular heart rhythm, edema, swelling of feet/ankles, lightheadedness, pre-syncope, dyspnea on exertion or orthopnea Resp: Denies: dyspnea, productive cough, non-productive cough, wheezing, stridor, pain on inspiration, change in phlegm color, hemoptysis or chest congestion GI: Denies: abdominal pain, nausea, vomiting, hematemesis, coffee ground emesis, dysphagia, heartburn, diarrhea, constipation, GI cramping, change in stool character, hematochezia or melena : Denies: flank pain, difficulty voiding, dysuria, urinary frequency, urinary urgency, urinary hesitancy or hematuria Musc: Denies: neck pain, back pain, extremity pain, joint swelling, joint warmth or deformity Neuro: Denies: headache(s), numbness in extremities, weakness in extremities, sensory changes, difficulty walking, frequent falls, dizziness, vertigo, behavioral changes, Slurred speech present or seizure-like activity Psych: Denies: anxiety, depression, suicidal ideation or homicidal ideation Endo: Denies: polyuria, polydipsia, tired all the time, cold intolerance or hot flashes Gualberto/Lymph: Denies: easy bruising or easy bleeding Medications/Allergies Home Medications ?Medication ?Instructions ?Recorded ?Confirmed ?Last Taken ?Type ibuprofen 200 mg tablet (Advil) 400 mg PO Q6H PRN Feve r Or Pain 02/12/25 02/12/25 02/11/25 22:00 History Allergies Allergy/AdvReac Type Severity Reaction Status Date / Time No Known Allergies Allergy Verified 08/10/24 14:28 PFSH Acute 2 PFSH: Medical History LLL pneumonia Back pain with history of spinal surgery Scoliosis Family History Father Thao infection Mother No problems noted. Social History Smoking and tobacco/nicotine status: never used tobacco/nicotine Alcohol intake: never Substance/Drug Use: never Female Reproductive History: Date of last menstrual period: 01/01/25 Vitals/I&O/Wt Last Vital Signs Temp 98 F 02/12/25 15:00 Pulse 82 02/12/25 16:00 Resp 22 H 02/12/25 16:00 BP 91/58 02/12/25 16:00 Pulse Ox 98 02/12/25 16:00 O2 Del Method Nasal Cannula 02/12/25 14:15 02/12/25 02/12/25 02/12/25 06:59 14:59 22:59 Intake Total 1000 / 1000 Balance 1000 / 1000 Weight last 48 hrs Weight 43.545 kg Weight 43.545 kg Physical Exam 2 Narrative: General: No acute distress, AO x3 HEENT: PERRLA, pupils bilaterally equal and reactive, pallors not present Chest: Normal vesicular breath sounds, no added sounds, equal good air entry bilaterally CVS: S1-S2 regular, no murmurs, no tachycardia, no gallops, no rubs Abdomen: Soft, nontender, no organomegaly, bowel sounds present Neuro: No focal deficits, no facial deformity, AO x3, power 5/5 in all limbs Data 02/12/25 11:14 02/12/25 11:14 Micro: Microbiology 02/12/25 11:10 Blood Culture - Preliminary Blood SPECIMEN COLLECTED 02/12/25 11:14 Blood Culture - Preliminary Blood SPECIMEN COLLECTED Other data: Radiology Impressions Chest X-Ray 02/12/25 10:37 IMPRESSION: Mild left basilar atelectasis. No focal consolidation or pneumothorax. Chest/Abdomen/Pelvis CT 02/12/25 11:48 IMPRESSION: No acute thoracic finding. IMPRESSION: 1. Abnormal left kidney suggesting pyelonephritis. Clinical correlation is advised. 2. Bilateral adnexal hypodense lesions suggesting ovarian cysts. Ultrasound follow-up can be obtained for further evaluation. Laboratory Results WBC 26.31 10^3/uL (3.29-11.43) H 02/12/25 11:14 RBC 4.14 10^6/uL (3.85-5.65) 02/12/25 11:14 Hgb 12.00 g/dL (11.27-16.99) 02/12/25 11:14 Hct 36.4 % (36-47) 02/12/25 11:14 MCV 87.9 fl (85-98) 02/12/25 11:14 MCH 29.0 pg (27-33) 02/12/25 11:14 MCHC 33.0 g/dL (30-55) 02/12/25 11:14 RDW 13.0 % (12.1-15.1) 02/12/25 11:14 Plt Count 183 10^3/cmm (157-399) 02/12/25 11:14 MPV 9.5 fL (7.4-10.4) 02/12/25 11:14 Neut % (Auto) 86.0 % 02/12/25 11:14 Lymph % (Auto) 1.7 % 02/12/25 11:14 [place] % (Auto) 10.8 % 02/12/25 11:14 Eos % (Auto) 0.1 % 02/12/25 11:14 Baso % (Auto) 0.2 % 02/12/25 11:14 Neut # (Auto) 22.62 10^3/uL (1.8-7.7) H 02/12/25 11:14 Lymph # (Auto) 0.5 10^3/uL (0.8-4.8) L 02/12/25 11:14 [place] # (Auto) 2.8 10^3/uL (0.2-0.9) H 02/12/25 11:14 Eos # (Auto) 0.0 10^3/uL (0.0-0.8) 02/12/25 11:14 Baso # (Auto) 0.1 10^3/uL (0.0-0.1) 02/12/25 11:14 Nucleated RBC % (auto) 0 % 02/12/25 11:14 Nucleated RBCs # 0.0 /100WBC 02/12/25 11:14 Sodium 132 mmol/L (136-145) L 02/12/25 11:14 Potassium 3.5 mmol/L (3.5-5.1) 02/12/25 11:14 Chloride 97 mmol/L (98-107) L 02/12/25 11:14 Carbon Dioxide 21 mmol/L (22-29) L 02/12/25 11:14 Anion Gap 17.5 (5-19) 02/12/25 11:14 BUN 16 mg/dL (6-20) 02/12/25 11:14 Creatinine 0.6 mg/dL (0.5-0.9) 02/12/25 11:14 GFR Calculation 120.8 mL/min (90-130) 02/12/25 11:14 Glucose 101 mg/dL (65-115) 02/12/25 11:14 Calculated Osmolality 275 mOsm/kg (285-295) L 02/12/25 11:14 Lactic Acid 1.1 mmol/L (0.5-2.2) 02/12/25 11:14 Calcium 8.6 mg/dL (8.5-10.5) 02/12/25 11:14 Total Bilirubin 0.5 mg/dL (0.15-1.2) 02/12/25 11:14 AST 12 U/L (0-32) 02/12/25 11:14 ALT 7 U/L (0-33) 02/12/25 11:14 Alkaline Phosphatase 88 U/L (35-105) 02/12/25 11:14 C-Reactive Protein 222.7 mg/L (0.0-4.9) H 02/12/25 11:14 Total Protein 6.8 g/dL (6.6-8.7) 02/12/25 11:14 Albumin 3.5 g/dL (3.5-5.2) 02/12/25 11:14 Globulin 3.3 g/dL (1.3-4.6) 02/12/25 11:14 HCG, Qual Negative (Negative) 02/12/25 11:14 Urine Color Yellow (Yellow) 02/12/25 12:24 Urine Appearance Clear (CLEAR) 02/12/25 12:24 Urine pH 6.0 (5-7) 02/12/25 12:24 Ur Specific [place] 1.063 (1.005-1.030) H 02/12/25 12:24 Urine Protein 2+ (Negative) A 02/12/25 12:24 Urine Glucose (UA) Negative (Normal) 02/12/25 12:24 Urine Ketones 3+ (Negative) H 02/12/25 12:24 Urine Blood Trace (Negative) A 02/12/25 12:24 Urine Nitrate Negative (Negative) 02/12/25 12:24 Urine Bilirubin Negative (Negative) 02/12/25 12:24 Urine Urobilinogen 1.0 mg/dL (Negative) 02/12/25 12:24 Ur Leukocyte Esterase 2+ (Negative) A 02/12/25 12:24 Urine RBC 0-2 /hpf (0-2) 02/12/25 12:24 Urine WBC 51-100 /hpf (0-5) H 02/12/25 12:24 Ur Squamous Epith Cells 11-20 /hpf (0-5) H 02/12/25 12:24 Amorphous Sediment Not Reportable 02/12/25 12:24 Urine Bacteria 2+ /hpf (NONE) H 02/12/25 12:24 Hyaline Casts 2.05 /lpf 02/12/25 12:24 Influenza A (PCR) Negative (Negative) 02/12/25 10:55 Influenza Type B (PCR) Negative (Negative) 02/12/25 10:55 RSV (PCR) Negative (Negative) 02/12/25 10:55 SARS-CoV-2 (PCR) Negative (Negative) 02/12/25 10:55 A&P Assessment and plan (1) Pyelonephritis: Patient presenting with 4 days of abdominal pain, fever, flank pain. CT of the abdomen and pelvis showing left pyelonephritis. This correlates with patient's pain site. UA positive 51-100, + leukocyte esterase She has received 2L iVF bolus in the ER, continue IV fluids normal saline at 100 cc an hour Target to maintain MAP greater than 65. ICU for close observation given soft systolic blood pressure 93-96. MAP is currently at 71 therefore has not been started on vasopressors yet. Will closely monitor in the ICU. She has received a dose of cefepime 2 g IV in the ER Will continue empiric antibiotic coverage with piperacillin/tazobactam every 8 hours. Blood cultures were taken and awaited Pending urine cultures As needed Zofran for control of nausea and vomiting. As needed morphine for pain Patient complaining of chest discomfort, suspect this is related to multiple episodes of vomiting less likely ACS. Telemetry with reassuring leads. Will obtain EKG and a baseline troponin. D-dimer for screening though PE is considered less likely given that patient is saturating well on room air. Incidentally noted Bilateral adnexal hypodense lesions suggesting ovarian cysts. Beta Hcg negative. Plan DVT prophylaxis: Lovenox Full code PDMP PDMP Reviewed: Not Reviewed Attestations 2 Medical Necessity Statement*: Greater than 2 midnight admission is anticipated Coding Level of Care Code Acute Code for Chg Fwd High MDM includes number and complexity of problems actively addressed during encounter, amount and/or complexity of data reviewed/ordered and described risk of complication, morbidity or mortality of management as documented Diagnoses Pyelonephritis N12
--- NOTE | 2025-02-12 16:41 | ECG_ITS ---
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 Measurements Intervals [place] Rate: 93 P: 55 TX: 100 QRS: 38 QRSD: 81 T: 51 QT: 327 QTc: 408 Interpretive Statements SINUS RHYTHM WITH SHORT TX INTERVAL No previous ECG available for comparison Electronically Signed On 02-13-2025 21:38:13 CDT by Marcus Berman M.D. [email or web address]
[2025-02-12] MEDS: lidocaine 2% viscous 15 ML, aluminum-mag hydrox-simethicon 30 ML, sucralfate oral liq 1 GM PO (16:49)
[2025-02-12] MEDS: enoxaparin 40 mg/0.4 mL Syringe SUBCUT (16:50)
[2025-02-12] MEDS: pantoprazole 40 mg SDV IVP (16:50)
[2025-02-12] MEDS: sodium chloride 0.9% 1,000 ML 100 ML IV (17:15)
[2025-02-12 17:23] LABS: Lipase 13 U/L (13-60); Thyroid Stimulating Hormone 1.19 uIU/mL (0.27-4.20)
[2025-02-12 17:36] LABS: Troponin(5th) Baseline < 6 ng/L (0-10)
[2025-02-12 17:39] LABS: D Dimer 0.98 ug/mLFEU (0-0.59)
[2025-02-12] MEDS: morphine 4 mg/mL SDV 1 mL 2 MG IVP ×2 (17:51→22:00)
--- NOTE | 2025-02-12 18:26 | ECG_ITS ---
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 Measurements Intervals [place] Rate: 109 P: 62 VA: 105 QRS: 18 QRSD: 94 T: 46 QT: 305 QTc: 412 Interpretive Statements SINUS TACHYCARDIA WITH SHORT VA INTERVAL ABNORMAL RHYTHM ECG Compared to ECG 02/12/2025 16:41:54 Sinus rhythm no longer present Electronically Signed On 02-13-2025 21:46:45 CDT by Marcus Berman M.D. [email or web address]
--- NOTE | 2025-02-12 18:51 | PC.NURSE ---
pt with pain morphine given , not voided doctor here , iv fluid infusing had loose bm pericare done and pull up placed on pt
[2025-02-12 19:25] LABS: Troponin 5 2HR < 6.0 ng/L (0-10); Troponin 5 2HR Delta 0 ABS# (0-10)
[2025-02-12] MEDS: acetaminophen 325 mg Tablet 650 MG PO (20:09)
[2025-02-12] MEDS: piperacillin-tazobactam 3.375 GM in sodium chloride 0.9% (plus) 50 ML IV (20:59)
--- NOTE | 2025-02-12 22:26 | ECG_ITS ---
[facility] Date: 2025-02-13 Pat Name: Nanda Hamilton Department: Room: 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 Measurements Intervals [place] Rate: 77 P: 53 KS: 115 QRS: 36 QRSD: 81 T: 42 QT: 372 QTc: 422 Interpretive Statements SINUS RHYTHM WITH SHORT [place] INTERVAL Compared to ECG 02/12/2025 18:17:18 Sinus tachycardia no longer present Electronically Signed On 02-13-2025 21:46:11 CDT by Marcus Berman M.D. [email or web address]
[2025-02-12 23:32] LABS: Troponin 5 6HR 7.08 ng/L (0-10); Troponin 5 6HR Delta 1.08001 ng/L (0-12)
[2025-02-13] VITALS (34 sets, daily range): BP systolic 83–107; BP diastolic 47–71; PULSE 65–102; RESP 14–30; TEMP 36.3–36.8; O2SAT 82–100
[2025-02-13] MEDS: morphine 4 mg/mL SDV 1 mL 2 MG IVP ×3 (03:10→21:41)
[2025-02-13] MEDS: sodium chloride 0.9% 1,000 ML 100 ML IV ×3 (03:55→15:11)
[2025-02-13 05:17] LABS: Basophils # 0.1 10^3/uL (0.0-0.1); Basophils % 0.3 %; Eosinophils # 0.1 10^3/uL (0.0-0.8); Eosinophils % 0.3 %; Hematocrit 32.3 % (36-47); Lymphocytes # 1.6 10^3/uL (0.8-4.8); Lymphocytes % 8.4 %; Mean Corpuscular HGB Conc 31.9 g/dL (30-55); Mean Platelet Volume 10.2 fL (7.4-10.4); Monocytes # 1.8 10^3/uL (0.2-0.9); Monocytes % 9.6 %; Neutrophils # 14.97 10^3/uL (1.8-7.7); Nucleated Red Blood Cells % 0 %; Platelet Count 154 10^3/cmm (157-399); Red Blood Count 3.55 10^6/uL (3.85-5.65); Red Cell Distribution Width 13.2 % (12.1-15.1); White Blood Count 18.68 10^3/uL (3.29-11.43)
[2025-02-13 05:41] LABS: Alanine Aminotransferase 9 U/L (0-33); Albumin Level 2.9 g/dL (3.5-5.2); Alkaline Phosphatase 85 U/L (35-105); Anion Gap 13.6 (5-19); Aspartate Amino Transferase 14 U/L (0-32); Blood Urea Nitrogen 13 mg/dL (6-20); Carbon Dioxide 22 mmol/L (22-29); Chloride 103 mmol/L (98-107); Creatinine Clr Calc Pharmacy 117.2086; Globulin 2.7 g/dL (1.3-4.6); Glomerular Filtration Rate 149.1 mL/min (90-130); Glucose 87 mg/dL (65-115); Osmolality Calculated 279 mOsm/kg (285-295); Potassium 3.6 mmol/L (3.5-5.1); Sodium 135 mmol/L (136-145); Total Bilirubin 0.4 mg/dL (0.15-1.2); Total Protein 5.6 g/dL (6.6-8.7)
[2025-02-13] MEDS: piperacillin-tazobactam 3.375 GM in sodium chloride 0.9% (plus) 50 ML IV (06:08)
[2025-02-13] MEDS: acetaminophen 325 mg Tablet 650 MG PO ×2 (06:11→15:10)
[2025-02-13] MEDS: lactulose oral liq 20 gm/30 mL UDC 10 GM PO ×2 (08:14→17:51)
[2025-02-13] MEDS: potassium chloride ER 20 mEq Tablet 40 MEQ PO (08:14)
--- NOTE | 2025-02-13 11:02 | USR_ITS ---
PROCEDURE INFORMATION: Exam: US Pelvis, Transvaginal, Non-Obstetric Exam date and time: 02/13/2025 1:35 PM Age: 24 years old Clinical indication: Abnormal findings; Abnormal imaging test; Additional info: Assess for adnexal mass, CT pelvis with bilateral adnexal hypodense lesions. Large TECHNIQUE: Imaging protocol: Real-time transvaginal pelvic (non-obstetric) ultrasound with image documentation. Transvaginal imaging was used for better evaluation of the endometrium, adnexa, and/or cervix. COMPARISON: No relevant prior studies available. FINDINGS: Uterus: Uterus is normal. Endometrial stripe is normal measuring 0.9 cm in thickness. Right ovary/adnexa: 7.9 x 8.5 x 6.0 cm cyst with some low-level echoes internally. Normal ovarian blood flow on color Doppler. Left ovary/adnexa: Normal. No mass. Normal ovarian blood flow on color Doppler. Urinary bladder: Urinary bladder is limited. Intraperitoneal space: No free fluid. US/US transvaginal [id number] IMPRESSION: Large right ovarian cyst with some internal low-level echoes. Recommend 6-12 week follow-up to ensure resolution.
[2025-02-13] MEDS: meropenem 1,000 mg SDV 1000 MG IVP ×2 (11:33→18:00)
[2025-02-13] MEDS: water for injection-sterile 20 ML 10000 ML (11:38)
--- NOTE | 2025-02-13 13:17 | PC.NURSE ---
report called and transfered to room 261 going to ultrasound department for tranvag us
--- NOTE | 2025-02-13 14:37 | P.PN_ITS ---
Subjective 2 Subjective: Febrile to 102.9 Fahrenheit overnight. Leukocytosis is improving today at 18,000. MAP has consistently been above 70. Medications: Reviewed: Yes Vitals/I&O/Wt Last Vital Signs Temp 98.3 F 02/13/25 03:00 Pulse 95 02/13/25 12:00 Resp 24 H 02/13/25 12:00 BP 90/57 02/13/25 12:00 Pulse Ox 100 02/13/25 12:00 O2 Del Method Nasal Cannula 02/12/25 14:15 02/12/25 02/13/25 02/13/25 22:59 06:59 14:59 Intake Total 700 / 1700 1530 / 3230 1283.333 / 1283.333 Output Total 451 / 451 450 / 901 Balance 249 / 1249 1080 / 2329 1283.333 / 1283.333 Weight last 48 hrs Weight 44.452 kg Weight 43.545 kg Weight 43.545 kg Physical Exam 2 Narrative: General: No acute distress, AO x3 HEENT: PERRLA, pupils bilaterally equal and reactive, pallors not present Chest: Normal vesicular breath sounds, no added sounds, equal good air entry bilaterally CVS: S1-S2 regular, no murmurs, no tachycardia, no gallops, no rubs Abdomen: Soft, nontender, no organomegaly, bowel sounds present Neuro: No focal deficits, no facial deformity, AO x3, power 5/5 in all limbs Data 02/13/25 04:03 02/13/25 04:03 Micro: Microbiology 02/12/25 11:14 Blood Culture - Preliminary Blood NEGATIVE TO DATE 02/12/25 11:10 Blood Culture - Preliminary Blood NEGATIVE TO DATE A&P Assessment and plan (1) Pyelonephritis: Patient presenting with 4 days of abdominal pain, fever, flank pain. CT of the abdomen and pelvis showing left pyelonephritis. This correlates with patient's pain site. UA positive 51-100, + leukocyte esterase She has received 2L iVF bolus in the ER, continue IV fluids normal saline at 100 cc an hour Target to maintain MAP greater than 65. ICU for close observation given soft systolic blood pressure 93-96. MAP is currently at 71 therefore has not been started on vasopressors yet. Will closely monitor in the ICU. She has received a dose of cefepime 2 g IV in the ER Will continue empiric antibiotic coverage with piperacillin/tazobactam every 8 hours. Blood cultures were taken and awaited Pending urine cultures As needed Zofran for control of nausea and vomiting. As needed morphine for pain Patient complaining of chest discomfort, suspect this is related to multiple episodes of vomiting less likely ACS. Telemetry with reassuring leads. Will obtain EKG and a baseline troponin. D-dimer for screening though PE is considered less likely given that patient is saturating well on room air. Incidentally noted Bilateral adnexal hypodense lesions suggesting ovarian cysts. Beta Hcg negative. Plan DVT prophylaxis: Lovenox Full code February 13, 2025 Patient is awake alert and oriented. States pain is slightly better but continuing to be more in the suprapubic region today. WBC count down to 18,000. Urine and blood cultures currently remain pending. Febrile to 102.9 overnight. Platelets down from 183-154. Discontinue Zosyn and switch to meropenem 1 g IV every 8 hours while urine and blood cultures remain pending. Suspect suspect gram-negative infection. D-dimer at 0.98, CT chest upon admission with contrast was negative for any PE or other infiltrates. EKG series with no concerning changes, troponin series negative. States that pain has today been worse in the suprapubic area which likely correlates with cystitis. Incidentally there was note made of bilateral adnexal hypodense lesions of which the right adnexal lesion was 7.9 x 9 cm protruding into the lower abdomen. Patient is 2 weeks post her last menstrual period, urine test is negative. Suspect these to be ovarian cysts, however given persisting pain will evaluate with Transvaginal ultrasound For any masses or ovarian torsion. Systolic blood pressure ranging mostly around 90, however patient weighs only about 44 kg. Suspect this may be constitutional for the patient. She denies any dizziness or any other symptoms. MAP has consistently been above 70 therefore has not needed to start pressor support. Tachycardia has now resolved. Move out of ICU to [facility] today. PDMP PDMP Reviewed: Not Reviewed Attestations 2 Medical Necessity Statement*: Continued need for IV antibiotics, persistent fever, need to follow urine and blood cultures Coding Level of Care Code Acute Code for Chg Fwd High MDM includes number and complexity of problems actively addressed during encounter, amount and/or complexity of data reviewed/ordered and described risk of complication, morbidity or mortality of management as documented Diagnoses Pyelonephritis N12
[2025-02-13] MEDS: pantoprazole 40 mg SDV IVP (16:13)
[2025-02-13] MEDS: enoxaparin 40 mg/0.4 mL Syringe SUBCUT (16:13)
--- NOTE | 2025-02-13 16:35 | CTR_ITS ---
PROCEDURE INFORMATION: Exam: CTA Chest With Contrast Exam date and time: 02/13/2025 5:32 PM Age: 24 years old Clinical indication: Shortness of breath; Prior surgery; Surgery date: 6+ months; Surgery type: Back; Additional info: Assess for pe TECHNIQUE: Imaging protocol: Computed tomographic angiography of the chest with contrast. Exam focused on the arteries. 3D rendering (Not supervised by radiologist): MIP and/or 3D reconstructed images were created by the technologist. Radiation optimization: All CT scans at this facility use at least one of these dose optimization techniques: automated exposure control; mA and/or kV adjustment per patient size (includes targeted exams where dose is matched to clinical indication); or iterative reconstruction. Contrast material: OMNI 350; Contrast volume: 49 ml; Contrast route: INTRAVENOUS (IV); COMPARISON: CT chest abdpel w/*[id number] 02/12/2025 12:08 PM RADIATION DOSE METRICS: Total DLP (mGy-cm): 158.22 FINDINGS: Pulmonary arteries: Normal. No pulmonary emboli. Aorta: Unremarkable. No aortic aneurysm. No aortic dissection. Lungs: Bilateral lower lobe consolidation with air bronchograms. There may be mild interlobular septal thickening at the right apex. Pleural spaces: Small bilateral pleural effusions are seen layering posteriorly. Heart: Unremarkable. No cardiomegaly. No pericardial effusion. Lymph nodes: Unremarkable. No enlarged lymph nodes. Bones/joints: Extensive thoracic spinal hardware with haydee and pedicle screws. Streak artifact from hardware somewhat limits images. Soft tissues: Unremarkable. CT/CT angio chest PE protcl [id number] IMPRESSION: 1. No pulmonary emboli seen. 2. Bilateral lower lobe consolidation or pneumonia with small pleural effusions bilaterally.
[2025-02-13 17:00] LABS: NT Pro B Type Natriuretic Pept 849 pg/mL (0-125)
[2025-02-13] MEDS: iohexol 350 mg/mL 500 mL Btl (per mL) IV (17:39)
[2025-02-13] MEDS: VANCOMYCIN ADD-Vantage 750 MG in 0.9% NaCl ADD-Vantage 250 ML 250 MG IV (17:54)
[2025-02-13 18:16] LABS: Adenovirus Not Detected (NOT DETECT); Chlamydia Pneumoniae Not Detected (NOT DETECT); Coronavirus 229E,HKU1,NL63,OC4 Not Detected (NOT DETECT); Human Metapneumovirus Not Detected (NOT DETECT); Human Rhinovirus/Enterovirus Not Detected (NOT DETECT); Influenza A Not Detected (NOT DETECT); Influenza A H1 Not Detected (NOT DETECT); Influenza A H1-2009 Not Detected (NOT DETECT); Influenza A H3 Not Detected (NOT DETECT); Influenza B Not Detected (NOT DETECT); Mycoplasma Pneumoniae Not Detected (NOT DETECT); Parainfluenza Virus Type 1 Not Detected (NOT DETECT); Parainfluenza Virus Type 2 Not Detected (NOT DETECT); Parainfluenza Virus Type 3 Not Detected (NOT DETECT); Parainfluenza Virus Type 4 Not Detected (NOT DETECT); Respiratory Syncytial Virus A Not Detected (NOT DETECT); Respiratory Syncytial Virus B Not Detected (NOT DETECT); SARS-COV-2 Not Detected (NOT DETECT)
[2025-02-14] VITALS (8 sets, daily range): BP systolic 105–115; BP diastolic 68–77; PULSE 70–90; RESP 15–24; TEMP 36.4–37.3; O2SAT 88–99
[2025-02-14] MEDS: morphine 4 mg/mL SDV 1 mL 2 MG IVP (02:44)
[2025-02-14] MEDS: meropenem 1,000 mg SDV 1000 MG IVP ×3 (02:44→19:28)
[2025-02-14] MEDS: lactulose oral liq 20 gm/30 mL UDC 10 GM PO ×2 (04:48→16:55)
[2025-02-14] MEDS: VANCOMYCIN ADD-Vantage 750 MG in 0.9% NaCl ADD-Vantage 250 ML 250 MG IV ×2 (04:49→16:55)
[2025-02-14 05:03] LABS: Basophils % 0.2 %; Eosinophils # 0.1 10^3/uL (0.0-0.8); Eosinophils % 0.5 %; Hematocrit 32.1 % (36-47); Lymphocytes % 6.2 %; Mean Corpuscular HGB Conc 32.7 g/dL (30-55); Mean Corpuscular Hemoglobin 29.2 pg (27-33); Mean Corpuscular Volume 89.4 fl (85-98); Mean Platelet Volume 9.7 fL (7.4-10.4); Monocytes # 1.4 10^3/uL (0.2-0.9); Monocytes % 8.3 %; Neutrophils # 13.87 10^3/uL (1.8-7.7); Nucleated Red Blood Cells % 0 %; Platelet Count 204 10^3/cmm (157-399); Red Blood Count 3.59 10^6/uL (3.85-5.65); Red Cell Distribution Width 13.1 % (12.1-15.1); White Blood Count 16.52 10^3/uL (3.29-11.43)
[2025-02-14 05:20] LABS: Alanine Aminotransferase 11 U/L (0-33); Albumin Level 2.8 g/dL (3.5-5.2); Alkaline Phosphatase 82 U/L (35-105); Anion Gap 12.8 (5-19); Aspartate Amino Transferase 11 U/L (0-32); Blood Urea Nitrogen 9 mg/dL (6-20); Calcium 7.9 mg/dL (8.5-10.5); Carbon Dioxide 23 mmol/L (22-29); Chloride 106 mmol/L (98-107); Creatinine Clr Calc Pharmacy 170.9276; Globulin 2.8 g/dL (1.3-4.6); Glomerular Filtration Rate 192.9 mL/min (90-130); Glucose 100 mg/dL (65-115); Osmolality Calculated 285 mOsm/kg (285-295); Potassium 3.8 mmol/L (3.5-5.1); Sodium 138 mmol/L (136-145); Total Bilirubin 0.2 mg/dL (0.15-1.2); Total Protein 5.6 g/dL (6.6-8.7)
--- NOTE | 2025-02-14 07:10 | PHA.VACGOAL ---
Vancomycin Goal - Goal Vancomycin Goal:: 15-20 mg/L Vancomycin Indication:: Other (UTI) - Therapy Current therapy:: Meropenem Day of therpy:: Day []of [] . Actual body weight (kg): 112 lb - Data Labs: WBC 16.52 10^3/uL (3.29-11.43) H 02/14/25 04:49 RBC 3.59 10^6/uL (3.85-5.65) L 02/14/25 04:49 Hgb 10.50 g/dL (11.27-16.99) L 02/14/25 04:49 Hct 32.1 % (36-47) L 02/14/25 04:49 MCV 89.4 fl (85-98) 02/14/25 04:49 MCH 29.2 pg (27-33) 02/14/25 04:49 MCHC 32.7 g/dL (30-55) 02/14/25 04:49 RDW 13.1 % (12.1-15.1) 02/14/25 04:49 Sodium 138 mmol/L (136-145) 02/14/25 04:49 Potassium 3.8 mmol/L (3.5-5.1) 02/14/25 04:49 Chloride 106 mmol/L (98-107) 02/14/25 04:49 Carbon Dioxide 23 mmol/L (22-29) 02/14/25 04:49 Anion Gap 12.8 (5-19) 02/14/25 04:49 BUN 9 mg/dL (6-20) 02/14/25 04:49 Creatinine 0.4 mg/dL (0.5-0.9) L 02/14/25 04:49 GFR Calculation 192.9 mL/min (90-130) H 02/14/25 04:49 Last dialysis session:: N/A Treatment plan:: new consult Regimen:: STARTED A MAINTENANCE DOSE OF 750 MG Q12H PER DOSING PROTOCOL Follow up:: WILL OBTAIN TROUGH PRIOR TO 4TH MAINTENANCE DOSE
[2025-02-14] MEDS: metoclopramide 5 mg/mL SDV 2 mL IVP (12:58)
[2025-02-14] MEDS: acetaminophen 325 mg Tablet 650 MG PO (13:17)
--- NOTE | 2025-02-14 15:38 | P.PN_ITS ---
Subjective 2 Subjective: Patient was seen this morning, she continues to complain of fatigue, malaise, generalized aches and pains, feeling nauseous, Vitals/I&O/Wt Last Vital Signs Temp 97.6 F 02/14/25 13:21 Pulse 76 02/14/25 13:21 Resp 18 02/14/25 13:21 BP 115/77 02/14/25 13:21 Pulse Ox 91 02/14/25 13:21 O2 Del Method Nasal Cannula 02/14/25 13:21 O2 Flow Rate 3 02/14/25 11:37 02/14/25 02/14/25 02/14/25 06:59 14:59 22:59 Intake Total 250 / 2701.666 360 / 360 Output Total 900 / 1300 900 / 900 Balance -650 / 1401.666 -540 / -540 Weight last 48 hrs Weight 50.802 kg Weight 44.452 kg Physical Exam 2 Const: COMMON NORMALS: no acute distress and patient oriented x3 Resp: COMMON NORMALS: normal respiratory effort, No retractions, No use of accessory muscles and clear to auscultation bilaterally AUSCULTATION: clear to auscultation bilaterally Cardio: COMMON NORMALS: regular rate, regular rhythm, S1 normal heart sound present and S2 normal heart sound present RATE: regular rate RHYTHM: r egular rhythm HEART SOUNDS: S1 normal heart sound present and S2 normal heart sound present GI: COMMON NORMALS: Normal to inspection, nondistended, normoactive bowel sounds present and non-tender Extremity: COMMON NORMALS: no pedal edema Neuro: COMMON NORMALS: patient oriented x3 Psych: COMMON NORMALS: mental status grossly normal Data 02/14/25 04:49 02/14/25 04:49 Micro: Microbiology 02/12/25 11:14 Blood Culture - Preliminary Blood NEGATIVE TO DATE 02/12/25 11:10 Blood Culture - Preliminary Blood NEGATIVE TO DATE A&P Assessment and plan (1) Pyelonephritis: (2) Sepsis: (3) LLL pneumonia: Plan Pyelonephritis CT abdomen findings IMPRESSION: 1. Abnormal left kidney suggesting pyelonephritis. Clinical correlation is advised. Plan - Moved out of ICU on medical floors - Maintain MAP greater than 65 - Currently on meropenem - Currently on vancomycin -Monitor urine culture -Monitor blood culture - Monitor clinically closely Bilateral lower lobe pneumonia CT/CT angio chest PE protcl [id number] IMPRESSION: 1. No pulmonary emboli seen. 2. Bilateral lower lobe consolidation or pneumonia with small pleural effusions bilaterally. - Requiring 3 L Plan -Continue vancomycin - Continue meropenem Sepsis secondary pyelonephritis, bilateral lower lobe pneumonia Right adnexal cyst Transvaginal ultrasound US/US transvaginal [id number] IMPRESSION: Large right ovarian cyst with some internal low-level echoes. Recommend 6-12 week follow-up to ensure resolution. - 2 weeks from last menstrual period - test is negative -Monitor History of scoliosis Full code Lovenox for DVT prophylaxis PDMP PDMP Reviewed: Not Reviewed Attestations 2 Medical Necessity Statement*: Patient requires hospitalization for sepsis, pyelonephritis, bilateral lower lobe pneumonia Diagnoses Pyelonephritis N12 Sepsis A41.9 LLL pneumonia J18.9
--- NOTE | 2025-02-14 16:35 | USCV_ITS ---
Nanda Hamilton Age: 24 Gender: F : 2000 Exam Date: 02/14/2025 08:15 Ordering Phys: Gifty Nunez MD Technologist: Khalif Saucedo Exam Location: [facility] [place] Indication: palp BP: 112 / 72 HR: 82 Rhythm: Sinus Technical Quality: Adequate MEASUREMENTS (Male / Female) Normal Values 2D ECHO LV Diastolic Diameter PLAX 4.3 cm 4.2 - 5.9 / 3.9 - 5.3 cm IVS Diastolic Thickness 1.0 cm 0.6 - 1.0 / 0.6 - 0.9 cm IVS Systolic Thickness 1.1 cm LVPW Diastolic Thickness 0.9 cm 0.6 - 1.0 / 0.6 - 0.9 cm LVPW Systolic Thickness 1.3 cm LVOT Diameter 1.7 cm LV Ejection Fraction 2D Teich 51.4 % LV Ejection Fraction MOD 4C 71.5 % LV Ejection Fraction MOD 2C 64.3 % LV Ejection Fraction 2C AL 64.9 % LA Diameter 2.1 cm RA Systolic Volume 4C AL 19.7 ml RA Systolic Volume 4C MOD 19.5 ml IVC Diameter 1.5 cm M-MODE LA Ao Ratio MM 1.1 AV Cusp Separation MM 1.4 cm DOPPLER AV Peak Velocity 138.0 cm/s LVOT Peak Velocity 95.0 cm/s AV Area Cont Eq vti 1.7 cm squared AV Area Cont Eq pk 1.5 cm squared MV Peak Velocity 138.0 cm/s MV Area PHT 5.5 cm squared Mitral E to A Ratio 2.0 TV Peak Velocity 215.5 cm/s TR Peak Velocity 253.0 cm/s TR Peak Gradient 25.6 mmHg TV Peak E Velocity 113.0 cm/s PV Peak Velocity 124.0 cm/s FINDINGS Left Ventricle left ventricle is normal size. LV systolic function is normal with EF of 60-65%. No regional wall motion abnormalities are seen. Right Ventricle Normal in size and function Right Atrium Normal in size Left Atrium Normal in size Mitral Valve Structurally normal mitral valve. Mild mitral regurgitation. Aortic Valve Structurally normal aortic valve. No significant stenosis or regurgitation. Tricuspid Valve Mild tricuspid regurgitation. Pulmonary artery systolic pressure is normal. Pulmonic Valve Trace pulmonic regurgitation. Pericardium Normal Aorta Normal in size IVC Appears to be normal CONCLUSIONS LV systolic function is normal with EF of 60-65% Mild mitral regurgitation Mild tricuspid regurgitation Trace pulmonic regurgitation No comparison studies are available Theodore Perez MD (Electronically Signed) Final Date: 14 February 2025 16:56 S
[2025-02-14] MEDS: pantoprazole 40 mg SDV IVP (16:54)
[2025-02-14] MEDS: FUROsemide 10 mg/mL SDV 2mL 20 MG IVP (16:55)
[2025-02-14] MEDS: enoxaparin 40 mg/0.4 mL Syringe SUBCUT (16:55)
[2025-02-15] VITALS (10 sets, daily range): BP systolic 101–119; BP diastolic 60–82; PULSE 69–104; RESP 16–18; TEMP 36.6–37.4; O2SAT 92–99
[2025-02-15] MEDS: acetaminophen 325 mg Tablet 650 MG PO (02:31)
[2025-02-15] MEDS: meropenem 1,000 mg SDV 1000 MG IVP ×3 (02:32→18:36)
[2025-02-15] MEDS: lactulose oral liq 20 gm/30 mL UDC 10 GM PO ×2 (05:04→16:33)
[2025-02-15] MEDS: VANCOMYCIN ADD-Vantage 750 MG in 0.9% NaCl ADD-Vantage 250 ML 250 MG IV (05:05)
[2025-02-15 05:19] LABS: Basophils # 0.1 10^3/uL (0.0-0.1); Basophils % 0.5 %; Eosinophils # 0.1 10^3/uL (0.0-0.8); Eosinophils % 1.3 %; Hematocrit 33.8 % (36-47); Lymphocytes # 1.2 10^3/uL (0.8-4.8); Lymphocytes % 11.1 %; Mean Corpuscular HGB Conc 33.1 g/dL (30-55); Mean Corpuscular Hemoglobin 28.9 pg (27-33); Mean Corpuscular Volume 87.1 fl (85-98); Mean Platelet Volume 9.3 fL (7.4-10.4); Monocytes # 0.9 10^3/uL (0.2-0.9); Monocytes % 8.5 %; Neutrophils % 77.7 %; Nucleated Red Blood Cells % 0 %; Platelet Count 237 10^3/cmm (157-399); Red Blood Count 3.88 10^6/uL (3.85-5.65); Red Cell Distribution Width 13.2 % (12.1-15.1); White Blood Count 10.69 10^3/uL (3.29-11.43)
[2025-02-15 05:39] LABS: Vancomycin Trough 4.3 ug/mL (10-15)
[2025-02-15 05:45] LABS: Procalcitonin 1.38 ng/mL (0-0.5)
[2025-02-15 05:51] LABS: Alanine Aminotransferase 13 U/L (0-33); Alkaline Phosphatase 78 U/L (35-105); Anion Gap 13.1 (5-19); Aspartate Amino Transferase 19 U/L (0-32); Blood Urea Nitrogen 9 mg/dL (6-20); C Reactive Protein 105.6 mg/L (0.0-4.9); Calcium 8.4 mg/dL (8.5-10.5); Carbon Dioxide 28 mmol/L (22-29); Chloride 101 mmol/L (98-107); Creatinine Clr Calc Pharmacy 170.9276; Globulin 2.5 g/dL (1.3-4.6); Glomerular Filtration Rate 192.9 mL/min (90-130); Glucose 99 mg/dL (65-115); Osmolality Calculated 287 mOsm/kg (285-295); Potassium 3.1 mmol/L (3.5-5.1); Sodium 139 mmol/L (136-145); Total Protein 5.5 g/dL (6.6-8.7)
[2025-02-15] MEDS: potassium chloride ER 20 mEq Tablet 40 MEQ PO (09:45)
[2025-02-15 11:46] LABS: Total Bilirubin 0.3 mg/dL (0.15-1.2)
[2025-02-15] MEDS: VANCOMYCIN ADD-Vantage 1,000 MG in 0.9% NaCl ADD-Vantage 250 ML 250 MG IV ×2 (13:15→19:32)
[2025-02-15] MEDS: pantoprazole 40 mg SDV IVP (16:33)
[2025-02-15] MEDS: enoxaparin 40 mg/0.4 mL Syringe SUBCUT (16:34)
--- NOTE | 2025-02-15 17:09 | P.PN_ITS ---
Subjective 2 Subjective: Patient was seen this morning, denies any fevers, no chills, does report fatigue, malaise Vitals/I&O/Wt Last Vital Signs Temp 98.4 F 02/15/25 15:26 Pulse 96 02/15/25 15:26 Resp 17 02/15/25 15:26 BP 115/78 02/15/25 15:26 Pulse Ox 92 02/15/25 15:26 O2 Del Method Nasal Cannula 02/15/25 15:26 O2 Flow Rate 2 02/15/25 08:47 02/15/25 02/15/25 02/15/25 06:59 14:59 22:59 Intake Total 250 / 980 610 / 610 Balance 250 / -420 610 / 610 Weight last 48 hrs Weight 49.442 kg Weight 50.802 kg Physical Exam 2 Const: COMMON NORMALS: no acute distress and patient oriented x3 Resp: COMMON NORMALS: normal respiratory effort, No retractions, No use of accessory muscles and clear to auscultation bilaterally AUSCULTATION: clear to auscultation bilaterally Cardio: COMMON NORMALS: regular rate, regular rhythm, S1 normal heart sound present and S2 normal heart sound present RATE: regular rate RHYTHM: r egular rhythm HEART SOUNDS: S1 normal heart sound present and S2 normal heart sound present GI: COMMON NORMALS: Normal to inspection, nondistended, normoactive bowel sounds present Extremity: COMMON NORMALS: no pedal edema Neuro: COMMON NORMALS: patient oriented x3 Psych: COMMON NORMALS: mental status grossly normal Data 02/15/25 05:09 02/15/25 05:09 Micro: Microbiology 02/13/25 12:24 Urine Culture - Preliminary Urine,Voided Gram Negative Rods A&P Assessment and plan (1) Pyelonephritis: (2) Sepsis: (3) LLL pneumonia: Plan Pyelonephritis CT abdomen findings IMPRESSION: 1. Abnormal left kidney suggesting pyelonephritis. Clinical correlation is advised. Plan - Moved out of ICU on medical floors - Maintain MAP greater than 65 - Currently on meropenem - Currently on vancomycin -Monitor urine culture -Monitor blood culture - Monitor clinically closely Bilateral lower lobe pneumonia CT/CT angio chest PE protcl [id number] IMPRESSION: 1. No pulmonary emboli seen. 2. Bilateral lower lobe consolidation or pneumonia with small pleural effusions bilaterally. - Requiring 3 L Plan -Continue vancomycin - Continue meropenem Sepsis secondary pyelonephritis, bilateral lower lobe pneumonia Right adnexal cyst Transvaginal ultrasound US/US transvaginal [id number] IMPRESSION: Large right ovarian cyst with some internal low-level echoes. Recommend 6-12 week follow-up to ensure resolution. - 2 weeks from last menstrual period - test is negative -Monitor Concerns for fluid overload 1 dose Lasix with potassium History of scoliosis Full code Lovenox for DVT prophylaxis PDMP PDMP Reviewed: Not Reviewed Attestations 2 Medical Necessity Statement*: Patient requires hospitalization for pyelonephritis, pneumonia Diagnoses Pyelonephritis N12 Sepsis A41.9 LLL pneumonia J18.9
[2025-02-15] MEDS: potassium chloride ER 20 mEq Tablet PO (17:15)
[2025-02-15] MEDS: FUROsemide 10 mg/mL SDV 2mL 20 MG IVP (17:15)
[2025-02-16] VITALS (7 sets, daily range): BP systolic 109–112; BP diastolic 71–75; PULSE 69–98; RESP 16–17; TEMP 36.7–37.1; O2SAT 95–100
[2025-02-16] MEDS: meropenem 1,000 mg SDV 1000 MG IVP ×2 (02:39→11:51)
[2025-02-16] MEDS: VANCOMYCIN ADD-Vantage 1,000 MG in 0.9% NaCl ADD-Vantage 250 ML 250 MG IV (05:15)
[2025-02-16] MEDS: lactulose oral liq 20 gm/30 mL UDC 10 GM PO (05:15)
[2025-02-16 07:05] LABS: Basophils # 0.1 10^3/uL (0.0-0.1); Basophils % 0.7 %; Eosinophils # 0.4 10^3/uL (0.0-0.8); Hematocrit 36.2 % (36-47); Lymphocytes % 20.5 %; Mean Corpuscular HGB Conc 32.9 g/dL (30-55); Mean Corpuscular Hemoglobin 28.3 pg (27-33); Mean Platelet Volume 9.4 fL (7.4-10.4); Monocytes # 1.3 10^3/uL (0.2-0.9); Monocytes % 12.8 %; Neutrophils # 5.92 10^3/uL (1.8-7.7); Neutrophils % 60.5 %; Nucleated Red Blood Cells % 0 %; Platelet Count 278 10^3/cmm (157-399); Red Blood Count 4.21 10^6/uL (3.85-5.65); Red Cell Distribution Width 13.2 % (12.1-15.1); White Blood Count 9.79 10^3/uL (3.29-11.43)
[2025-02-16 07:25] LABS: Alanine Aminotransferase 69 U/L (0-33); Albumin Level 3.2 g/dL (3.5-5.2); Alkaline Phosphatase 82 U/L (35-105); Anion Gap 14.7 (5-19); Aspartate Amino Transferase 111 U/L (0-32); Blood Urea Nitrogen 12 mg/dL (6-20); Calcium 8.6 mg/dL (8.5-10.5); Carbon Dioxide 27 mmol/L (22-29); Chloride 103 mmol/L (98-107); Creatinine Clr Calc Pharmacy 153.5293; Globulin 3.1 g/dL (1.3-4.6); Glomerular Filtration Rate 192.9 mL/min (90-130); Glucose 92 mg/dL (65-115); Osmolality Calculated 291 mOsm/kg (285-295); Potassium 3.7 mmol/L (3.5-5.1); Sodium 141 mmol/L (136-145); Total Bilirubin 0.3 mg/dL (0.15-1.2); Total Protein 6.3 g/dL (6.6-8.7)
[2025-02-16 08:16] LABS: Procalcitonin 0.76 ng/mL (0-0.5)
--- NOTE | 2025-02-16 08:33 | XR_ITS ---
WS: [id number] Portable AP upright chest, 02/16/2025 Clinical Data: sob Comparison: Portable chest, 02/12/2025 Findings: There is minimal opacity in the left lower lobe which could represent atelectasis and/or minimal pneumonia. No nodules, masses or effusions are seen. The heart is normal. The pulmonary vascularity is not increased. No pneumothorax is seen. There are monitor leads on the chest and abdominal [place]. There is a posterior thoracolumbar fusion unchanged. XR/XR chest 1V portable [id number] Impression: Minimal left basilar opacity which could represent atelectasis and/or minimal p neumonia.
[2025-02-16] MEDS: FUROsemide 10 mg/mL SDV 2mL 20 MG IVP (09:23)
--- NOTE | 2025-02-16 11:30 | P.DS_ITS ---
Discharge Providers Date of Admission: 02/12/25 13:29 Date of Discharge: February 16, 2025 Attending Provider at Admission: Gifty Nunez MD Attending Provider at Discharge: Alon Haywood MD Diagnoses at Discharge Discharge Diagnosis (1) Pyelonephritis: Status: Acute (2) Sepsis: Status: Acute (3) LLL pneumonia: Status: Acute Reason for Visit Reason for Visit: constipated Hospital Course Hospital Course This is a 24-year female with past medical history of scoliosis status post reconstruction surgery of the spine, who presents to [facility] due to abdominal pain, fever Patient was admitted to [facility] for sepsis with left pyelonephritis, with pneumonia, requiring ICU admission, broad-spectrum antibiotic therapy and clinical monitoring, overall patient had slow positive clinical progress, but overall improved, leukocytosis improved, inflammatory markers improved, remained afebrile, blood cultures so far no growth, urine culture showing gram-negative rods. Patient will be discharged on 7 remaining days of Levaquin, instructions to drink plenty electrolyte balance fluids, monitor for fevers, if any worsening symptomatology please go to emergency room. Patient's hospitalization was complicated by hypoxia, likely secondary to pneumonia, CT angiogram of the chest was negative for PE, she was discharged on room air, discharged on Levaquin, discharged on the butyryl, follow-up with primary care provider as outpatient Patient was found to have a large right ovarian cyst, with some internal low- level echoes, this should be followed through primary care We discussed for patient to follow-up with primary care, she should in the meantime avoid sexual intercourse, until her antibiotics are completed, and use form of barrier protection, to decrease risk of unplanned , and decrease risk of defects. Discussed with patient that she should follow- up with primary care provider to discuss forms of control Patient does have transaminitis on discharge, AST 111, ALT 69, discussed to avoid alcohol, follow-up with primary care provider to recheck liver function in 1 week Physical Exam Const: COMMON NORMALS: no acute distress and patient oriented x3 Resp: COMMON NORMALS: normal respiratory effort, No retractions, No use of accessory muscles and clear to auscultation bilaterally AUSCULTATION: clear to auscultation bilaterally Cardio: COMMON NORMALS: regular rate, regular rhythm, S1 normal heart sound present and S2 normal heart sound present RATE: regular rate RHYTHM: regular rhythm HEART SOUNDS: S1 normal heart sound present and S2 normal heart sound present GI: COMMON NORMALS: Normal to inspection, nondistended, normoactive bowel sounds present and non-tender Extremity: COMMON NORMALS: no pedal edema Neuro: COMMON NORMALS: patient oriented x3 Psych: COMMON NORMALS: mental status grossly normal Discharge Data Studies Completed and Pending Completed Studies During Hospitalization Category Date Time Status CT chest abdomen pelvis [CT chest abdpel w/*[id number] Cat Scan 02/12/25 11:48 Completed ] Stat CTA PE [CT angio chest PE protcl [id number]] Routine Cat Scan 02/13/25 16:35 Completed XR chest 1V portable [id number] Routine Exams 02/16/25 08:33 Completed XR chest 1V portable [id number] Stat Exams 02/12/25 10:37 Completed CV. echo complete* [id number] Routine Ultrasound 02/14/25 16:35 Completed US transvaginal [id number] Routine Ultrasound 02/13/25 11:02 Completed Pending at discharge Category Date Time Status Blood Culture Stat Lab 02/12/25 11:10 Results C Reactive Protein AM LABS Lab 02/17/25 04:00 Ordered Complete Blood Count w/Auto AM LABS Lab 02/17/25 04:00 Ordered Comprehensive Metabolic Panel AM LABS Lab 02/17/25 04:00 Ordered Procalcitonin AM LABS Lab 02/17/25 04:00 Ordered Urine Culture Stat Lab 02/13/25 12:24 Results Vancomycin Trough Timed Lab 02/16/25 12:00 Ordered Radiology Impressions Chest/Abdomen/Pelvis CT 02/12/25 11:48 IMPRESSION: No acute thoracic finding. IMPRESSION: 1. Abnormal left kidney suggesting pyelonephritis. Clinical correlation is advised. 2. Bilateral adnexal hypodense lesions suggesting ovarian cysts. Ultrasound follow-up can be obtained for further evaluation. Transvaginal US 02/13/25 11:02 IMPRESSION: Large right ovarian cyst with some internal low-level echoes. Recommend 6-12 week follow-up to ensure resolution. Chest CTA 02/13/25 16:35 IMPRESSION: 1. No pulmonary emboli seen. 2. Bilateral lower lobe consolidation or pneumonia with small pleural effusions bilaterally. ADDENDUM: 02/13/25 1823 Thin axial images were provided and reviewed. No changes to the original report. Chest X-Ray 02/16/25 08:33 Impression: Minimal left basilar opacity which could represent atelectasis and/or minimal pneumonia. Laboratory Results WBC 9.79 10^3/uL (3.29-11.43) 02/16/25 06: RBC 4.21 10^6/uL (3.85-5.65) 02/16/25 06:26 Hgb 11.90 g/dL (11.27-16.99) 02/16/25 06:26 Hct 36.2 % (36-47) 02/16/25 06: MCV 86.0 fl (85-98) 02/16/25 06: MCH 28.3 pg (27-33) 02/16/25 06: MCHC 32.9 g/dL (30-55) 02/16/25 06: RDW 13.2 % (12.1-15.1) 02/16/25 06: Plt Count 278 10^3/cmm (157-399) 02/16/25 06:26 MPV 9.4 fL (7.4-10.4) 02/16/25 06: Neut % (Auto) 60.5 % 02/16/25 06:26 Lymph % (Auto) 20.5 % 02/16/25 06:26 Castro % (Auto) 12.8 % 02/16/25 06:26 Eos % (Auto) 4.0 % 02/16/25 06: Baso % (Auto) 0.7 % 02/16/25 06: Neut # (Auto) 5.92 10^3/uL (1.8-7.7) 02/16/25 06: Lymph # (Auto) 2.0 10^3/uL (0.8-4.8) 02/16/25 06:26 Castro # (Auto) 1.3 10^3/uL (0.2-0.9) H 02/16/25 06:26 Eos # (Auto) 0.4 10^3/uL (0.0-0.8) 02/16/25 06:26 Baso # (Auto) 0.1 10^3/uL (0.0-0.1) 02/16/25 06:26 Nucleated RBC % (auto) 0 % 02/16/25 06:26 Nucleated RBCs # 0.0 /100WBC 02/16/25 06:26 D-Dimer 0.98 ug/mLFEU (0-0.59) H 02/12/25 17:08 Sodium 141 mmol/L (136-145) 02/16/25 06:26 Potassium 3.7 mmol/L (3.5-5.1) 02/16/25 06:26 Chloride 103 mmol/L (98-107) 02/16/25 06:26 Carbon Dioxide 27 mmol/L (22-29) 02/16/25 06:26 Anion Gap 14.7 (5-19) 02/16/25 06:26 BUN 12 mg/dL (6-20) 02/16/25 06:26 Creatinine 0.4 mg/dL (0.5-0.9) L 02/16/25 06:26 GFR Calculation 192.9 mL/min (90-130) H 02/16/25 06:26 Glucose 92 mg/dL (65-115) 02/16/25 06:26 Calculated Osmolality 291 mOsm/kg (285-295) 02/16/25 06:26 Lactic Acid 1.1 mmol/L (0.5-2.2) 02/12/25 11:14 Calcium 8.6 mg/dL (8.5-10.5) 02/16/25 06:26 Total Bilirubin 0.3 mg/dL (0.15-1.2) 02/16/25 06:26 AST 111 U/L (0-32) H 02/16/25 06:26 ALT 69 U/L (0-33) H 02/16/25 06:26 Alkaline Phosphatase 82 U/L (35-105) 02/16/25 06:26 Troponin T Baseline < 6 ng/L (0-10) 02/12/25 17:08 Troponin T 120 Minute < 6.0 ng/L (0-10) 02/12/25 19:00 Delta Troponin T 0 ABS# (0-10) 02/12/25 19:00 Troponin T Hi Sens 6Hr 7.08 ng/L (0-10) 02/12/25 23:05 Troponin T Hi Sens 6Hr Delta 1.34424 ng/L (0-12) 02/12/25 23:05 C-Reactive Protein 56.0 mg/L (0.0-4.9) H 02/16/25 06:26 NT-Pro-B Natriuret Pep 849 pg/mL (0-125) H 02/13/25 04:03 Total Protein 6.3 g/dL (6.6-8.7) L 02/16/25 06:26 Albumin 3.2 g/dL (3.5-5.2) L 02/16/25 06: Globulin 3.1 g/dL (1.3-4.6) 02/16/25 06: Lipase 13 U/L (13-60) 02/12/25 11:14 Procalcitonin 0.76 ng/mL (0-0.5) H 02/16/25 06: TSH 1.19 uIU/mL (0.27-4.20) 02/12/25 11:14 HCG, Qual Negative (Negative) 02/12/25 11:14 Urine Color Yellow (Yellow) 02/12/25 12:24 Urine Appearance Clear (CLEAR) 02/12/25 12:24 Urine pH 6.0 (5-7) 02/12/25 12:24 Ur Specific [place] 1.063 (1.005-1.030) H 02/12/25 12:24 Urine Protein 2+ (Negative) A 02/12/25 12:24 Urine Glucose (UA) Negative (Normal) 02/12/25 12:24 Urine Ketones 3+ (Negative) H 02/12/25 12:24 Urine Blood Trace (Negative) A 02/12/25 12:24 Urine Nitrate Negative (Negative) 02/12/25 12:24 Urine Bilirubin Negative (Negative) 02/12/25 12:24 Urine Urobilinogen 1.0 mg/dL (Negative) 02/12/25 12:24 Ur Leukocyte Esterase 2+ (Negative) A 02/12/25 12:24 Urine RBC 0-2 /hpf (0-2) 02/12/25 12:24 Urine WBC 51-100 /hpf (0-5) H 02/12/25 12:24 Ur Squamous Epith Cells 11-20 /hpf (0-5) H 02/12/25 12:24 Amorphous Sediment Not Reportable 02/12/25 12:24 Urine Bacteria 2+ /hpf (NONE) H 02/12/25 12:24 Hyaline Casts 2.05 /lpf 02/12/25 12:24 Vancomycin Trough 4.3 ug/mL (10-15) L 02/15/25 05:09 Adenovirus (PCR) Not detected (NOT DETECT) 02/13/25 16:18 C. pneumoniae DNA (PCR) Not detected (NOT DETECT) 02/13/25 16:18 Coronavirus 229E (PCR) Not detected (NOT DETECT) 02/13/25 16:18 Human Metapneumovir PCR Not detected (NOT DETECT) 02/13/25 16:18 Influenza A (H1) PCR Not detected (NOT DETECT) 02/13/25 16:18 Influenza A (PCR) Negative (Negative) 02/12/25 10:55 Influ A (H1/09) PCR Not detected (NOT DETECT) 02/13/25 16:18 Influenza A (H3) PCR Not detected (NOT DETECT) 02/13/25 16:18 Influenza Type A (PCR) Not detected (NOT DETECT) 02/13/25 16:18 Influenza Type B (PCR) Not detected (NOT DETECT) 02/13/25 16:18 M. pneumoniae (PCR) Not detected (NOT DETECT) 02/13/25 16:18 Parainfluenza 1 (PCR) Not detected (NOT DETECT) 02/13/25 16:18 Parainfluenza 2 (PCR) Not detected (NOT DETECT) 02/13/25 16:18 Parainfluenza 3 (PCR) Not detected (NOT DETECT) 02/13/25 16:18 Parainfluenza 4 (PCR) Not detected (NOT DETECT) 02/13/25 16:18 RSV (PCR) Negative (Negative) 02/12/25 10:55 RSV Type A (PCR) Not detected (NOT DETECT) 02/13/25 16:18 RSV Type B (PCR) Not detected (NOT DETECT) 02/13/25 16:18 Entero/Rhino (PCR) Not detected (NOT DETECT) 02/13/25 16:18 SARS-CoV-2 (PCR) Not detected (NOT DETECT) 02/13/25 16:18 Vitals Last Vital Signs Temp 98.7 F 02/16/25 11:21 Pulse 93 02/16/25 11:21 Resp 16 02/16/25 11:21 BP 109/75 02/16/25 11:21 Pulse Ox 95 02/16/25 11:21 O2 Del Method Room Air 02/16/25 11:21 O2 Flow Rate 0.5 02/16/25 08:31 Discharge Plan Discharge Patient Disposition: Home Condition: Stable Prescriptions: New levofloxacin 750 mg tablet 750 mg PO DAILY 7 Days Qty: 7 0RF albuterol sulfate [Ventolin HFA] 90 mcg/actuation HFA aerosol inhaler 1 inh inhalation Q6H PRN (Reason: shortness of breath or wheezing) 30 Days Qty: 8.5 0RF Continued ibuprofen [Advil] 200 mg Tablet 400 mg PO Q6H PRN (Reason: Fever Or Pain) Discharge Orders: Discharge Order (Routine); Ordered 02/16/25 Ordered By: Alon Haywood Referrals: Srikanth Sen MD [Physician, Family Practice] - 03/08/25 8:00 am Discharge Diet: Regular Discharge Activity: Resume usual activity Patient Instructions: Albuterol (By breathing), Levofloxacin (By mouth), Opioid Safety, Pneumonia Stoplight Activity Restrictions/Additional Instructions: -Your liver function on discharge - AST 111, ALT 69 - Please avoid alcohol - Please see your primary care provider, discussed forms of control - For now please use a form of barrier protection to decrease risk of , and risk of defects as I am discharging you on oral antibiotics Discharge Attestations Time Spent in Discharge Care*: greater than 30 min Quality Metrics Clinical Quality Measures [ No reported AMI, CVA or VTE this stay] Coding Level of Care Code 72299 Total time (in minutes) for Discharge: 45 Diagnoses Pyelonephritis N12 Sepsis A41.9 LLL pneumonia J18.9
[2025-02-16 12:38] LABS: Vancomycin Trough 20.3 ug/mL (10-15)
== END 2025-02-16 13:45 | disposition home or self-care (01) | DRG 871 ==
LOC: ER 13:30 → ICU 13:42 → MEDSURG 02-13 14:07
PROVIDERS: Admitting Provider Student in an Organized Health Care Education/Training Program; Emergency Provider Emergency Medicine; Visit Provider Family Medicine
DX: A41.9 Sepsis, unspecified organism (principal); J18.9 Pneumonia, unspecified organism; N12 Tubulo-interstitial nephritis, not specified as acute or chronic; E87.20 Acidosis, unspecified; K59.00 Constipation, unspecified; B96.89 Other specified bacterial agents as the cause of diseases classified elsewhere; R09.02 Hypoxemia; N83.201 Unspecified ovarian cyst, right side; N30.90 Cystitis, unspecified without hematuria
CPT/HCPCS: 36415; 36592; 71045; 71260; 71275; 74177; 76830; 80053; 80202; 81001; 83605; 83690; 83880; 84145; 84443; 84484; 84703; 85025; 85378; 86140; 87040; 87077; 87086; 87186; 87486; 87581; 87633; 87637; 93005; 93306; 94760; 96361; 96372; 96374; 96375; 96376; 99285; J0692; J1650; J1938; J2185; J2270; J2405; J2470; J2543; J2765; J3370; J7030; J7050; J9999

== ENCOUNTER → 2025-03-08 08:49 | Outpatient (BNVA) | payer SELFPAY | PROVIDERS: PCP Family Medicine; Visit Provider Family Medicine | DX: R74.01 Elevation of levels of liver transaminase levels (principal); Z98.1 Arthrodesis status | CPT/HCPCS: 71046; 80053; 84439; 84443 ==

== ENCOUNTER 2025-04-18 16:01 | Emergency (ER) | payer SELFPAY ==
[2025-04-18 16:05] VITALS: BP 117/75; PULSE 102; TEMP 37.1; O2SAT 100
--- OUTSIDE RECORDS SUMMARY | 2025-04-18 16:05 | XMS_ITS | Encounter Summary ---
Author Organization [facility] Address [address] [place] [address] Care Team Providers Care Bilingual Loan Processor Name Role Phone Unavailable Primary Care Provider Unavailabl e Encounter Details Date Type Department Care Team (Latest Contact Info) Description 06/01/2001 Outpatient Historical [facility] ([facility]3] [facility] 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
--- OUTSIDE RECORDS SUMMARY | 2025-04-18 16:05 | XMS_ITS | Clinical Summary ---
[facility] Address [address] [place] [address] Care Team Providers Care Paper Wood Cutter Name Role Phone Unavailable Primary Care Provider Unavailabl e Allergies No known active allergies Medications No known medications Active Problems Problem Noted Date Diagnosed Date Scoliosis 07/31/2014 Immunizations Immunization Administration Dates Next Due (M-M-R II/PRIORIX)(12 MO UP) MEASLES, MUMPS AND RUBELLA VIRUS VACCINE, 0.5 ML IM/SUBCUT 01/10/2000 (VARIVAX)(12 MOS UP)VARICELL A VIRUS VACCINE (PF) 0.5 ML, SUB CUT 10/11/1999 Dt Dtp Dtap Vaccine 01/10/2000, 9,04/20/1999,1998 HIB, Unspecified Formulation 01/10/2000, 06/15/1999,04/20/1999,1998 Hepatitis B Vaccine 06/15/1999,02/16/1999,1998 IPV/OPV 01/10/2000,04/20/1999,02/16/1999 Social History Tobacco Use Types Packs/Day Years Used Date Smoking Tobacco: Never Smokeless Tobacco: Never Alcohol Use Standard Drinks/Week Comments Not Asked 0 (1 standard drink = 0.6 oz pur e alcohol) Comments No Sex and Gender Information Value Date Recorded Sex Assigned at Not on file 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 Gender Identity Not on file Sexual Orientation Not on file Last Filed Vital Signs Vital Sign Reading Time Taken Comments Blood Pressure 118/70 07/15/2014 1:32 PM PARALEGAL LEGAL SECRETARY Pulse 96 07/15/2014 1:32 PM PARALEGAL LEGAL SECRETARY Temperature 36.8 C (98.2 F) 07/15/2014 1:32 PM PARALEGAL LEGAL SECRETARY Respiratory Rate - - Oxygen Saturation 98% 07/15/2014 1:32 PM PARALEGAL LEGAL SECRETARY Inhaled Oxygen Concentration - - Weight 36.3 kg (80 lb) 07/15/2014 1:32 PM PARALEGAL LEGAL SECRETARY Height 149.9 cm (4' 11 ) 07/15/2014 1:32 PM PARALEGAL LEGAL SECRETARY Body Mass Index 16.16 07/15/2014 1:32 PM PARALEGAL LEGAL SECRETARY Plan of Treatment Health Maintenance Due Date Last Done Comments DTAP/TDAP/TD VACCINES (5 - Tdap) 2009 01/10/2000, 06/15/1999, 04/20/1999, Additional history exists HPV VACCINES (1 - 3-dose series) 2013 CERVICAL CANCER SCREENING 2019 HPV/Cotest (21-29) 2019 PAP SMEAR 2019 INFLUENZA VACCINE (#1) 2025 HEPATITIS B VACCINES Completed 06/15/1999, 02/16/1999, 01/06/1999 Insurance [place]ICAID [place]
--- NOTE | 2025-04-18 17:10 | W.ED.EXTPRO ---
Documented by User: Min Lowry DO 04/19/25 13:56 HPI - Extremity Problem General: Chief complaint: Extremity Injury, Lower Stated complaint: Purvi Gaviria leg pain, buring when urinating Time Seen by Provider: 04/18/25 16:40 History of Present Illness: 24-year-old female presents emergency room complaining of leg pain as well as pain and burning with urination. Patient is concerned she may have pyelonephritis. [place] has little swelling locally. No shortness of breath no chest pain she has not had any fever at home. Associated symptoms: Deny chest pain, fever(s) or rash Related Data Home Medications ?Medication ?Instructions ?Recorded ?Confirmed ibuprofen 200 mg tablet (Advil) 400 mg PO Q6H PRN Fever Or Pain 02/12/25 04/18/25 Previous Rx's ?Medication ?Instructions ?Recorded ciprofloxacin HCl 500 mg tablet 500 mg PO BID #14 tabs 04/18/25 Allergies Allergy/AdvReac Type Severity Reaction Status Date / Time No Known Allergies Allergy Verified 04/18/25 16:10 Review of Systems Const: Denies: fever(s) or chills Card: Denies: chest pain Resp: Denies: dyspnea GI: Denies: abdominal pain : Denies: dysuria, urinary frequency or urinary urgency Musc: Denies: neck pain or back pain Skin/Breast: Denies: rash PFSH ED PFSH: Medical History LLL pneumonia Ovarian cyst Back pain with history of spinal surgery Scoliosis Family History Father Thao infection Mother No problems noted. Social History Smoking and tobacco/nicotine status: never used tobacco/nicotine Alcohol intake: never Substance/Drug Use: never Physical Exam Const: GENERAL APPEARANCE: cooperative ORIENTATION/CONSCIOUSNESS: Yes awake, Yes oriented to person, Yes oriented to place and Yes oriented to time HENMT: COMMON NORMALS: normocephalic, atraumatic and hearing grossly normal bilaterally HEAD & SCALP: normocephalic and atraumatic Resp: COMMON NORMALS: normal respiratory effort, No retractions, No use of accessory muscles and clear to auscultation bilaterally AUSCULTATION: clear to auscultation bilaterally Cardio: COMMON NORMALS: regular rate, regular rhythm and No murmurs present (Cardio) RATE: regular rate RHYTHM: regular rhythm GI: COMMON NORMALS: Soft to palpation and No hepatosplenomegaly present AUSCULTATION: Yes normoactive bowel sounds PALPATION: Yes Soft to palpation, No Tenderness to palpation present (GI), No Guarding due to palpation present (GI) and Yes No hepatosplenomegaly present Extremity: COMMON NORMALS: normal to inspection, capillary refill normal, no clubbing, cyanosis or edema, no calf tenderness and no pedal edema Neuro: SENSORIUM/ORIENTATION: Yes oriented to person, Yes oriented to place and Yes oriented to time Skin: COMMON NORMALS: no rashes or lesions noted GENERAL SKIN EXAM: no rashes or lesions noted Course Vital Signs: Vital signs: Vital Signs Temperature 98.8 F 04/18/25 16:05 Pulse Rate 98 04/18/25 19:21 Blood Pressure 122/65 04/18/25 19:21 Pulse Oximetry 100 04/18/25 19:21 Oxygen Delivery Me thod Room Air 04/18/25 16:05 MDM - Extremity (Nontraumatic) Medical Decision Making Care signed out to Dr. Abdi at change of shift. See final notes for diagnosis and disposition. Signout from Dr. Lowry at 6 PM. Patient here with concerns for right knee injury and possible urinary tract infection. Awaiting test results. On reassessment I talked with the patient about her test results. Her x-ray shows no acute bony abnormality. Her urine does show signs of a mild urinary tract infection. Her heart rate was initially high at 102 but is resolved to the low 90s and high 80s at this time. She does have a elevation of white blood cell count of 15.3. Repeat exam reveals soft abdomen, normal heart rate. Will start her on ciprofloxacin 500 twice daily for 7 days as indicated and up-to-date. Will discharge at this time with precautions to return for worsening or changing symptoms. Lab Data 04/18/25 17:19 04/18/25 17:19 Radiology Impressions Knee X-Ray 04/18/25 18:04 IMPRESSION: No acute appearing bony abnormality. Maybe soft tissue injury medial upper right lower leg Laboratory Results WBC 15.32 10^3/uL (3.29-11.43) H 04/18/25 17:19 RBC 4.18 10^6/uL (3.85-5.65) 04/18/25 17:19 Hgb 12.10 g/dL (11.27-16.99) 04/18/25 17:19 Hct 36.1 % (36-47) 04/18/25 17:19 MCV 86.4 fl (85-98) 04/18/25 17:19 MCH 28.9 pg (27-33) 04/18/25 17:19 MCHC 33.5 g/dL (30-55) 04/18/25 17:19 RDW 12.9 % (12.1-15.1) 04/18/25 17:19 Plt Count 225 10^3/cmm (157-399) 04/18/25 17:19 MPV 10.0 fL (7.4-10.4) 04/18/25 17:19 Neut % (Auto) 82.1 % 04/18/25 17:19 Lymph % (Auto) 8.6 % 04/18/25 17:19 [place] % (Auto) 8.1 % 04/18/25 17:19 Eos % (Auto) 0.5 % 04/18/25 17:19 Baso % (Auto) 0.3 % 04/18/25 17:19 Neut # (Auto) 12.59 10^3/uL (1.8-7.7) H 04/18/25 17:19 Lymph # (Auto) 1.3 10^3/uL (0.8-4.8) 04/18/25 17:19 [place] # (Auto) 1.2 10^3/uL (0.2-0.9) H 04/18/25 17:19 Eos # (Auto) 0.1 10^3/uL (0.0-0.8) 04/18/25 17:19 Baso # (Auto) 0.1 10^3/uL (0.0-0.1) 04/18/25 17:19 Nucleated RBC % (auto) 0 % 04/18/25 17:19 Nucleated RBCs # 0.0 /100WBC 04/18/25 17:19 Sodium 132 mmol/L (136-145) L 04/18/25 17:19 Potassium 3.3 mmol/L (3.5-5.1) L 04/18/25 17:19 Chloride 98 mmol/L (98-107) 04/18/25 17:19 Carbon Dioxide 23 mmol/L (22-29) 04/18/25 17:19 Anion Gap 14.3 (5-19) 04/18/25 17:19 BUN 15 mg/dL (6-20) 04/18/25 17:19 Creatinine 0.5 mg/dL (0.5-0.9) 04/18/25 17:19 GFR Calculation 149.1 mL/min (90-130) H 04/18/25 17:19 Glucose 89 mg/dL (65-115) 04/18/25 17:19 Calculated Osmolality 274 mOsm/kg (285-295) L 04/18/25 17:19 Lactic Acid 0.8 mmol/L (0.5-2.2) 04/18/25 17:19 Calcium 8.6 mg/dL (8.5-10.5) 04/18/25 17:19 Total Bilirubin 0.4 mg/dL (0.15-1.2) 04/18/25 17:19 AST 13 U/L (0-32) 04/18/25 17:19 ALT 10 U/L (0-33) 04/18/25 17:19 Alkaline Phosphatase 89 U/L (35-105) 04/18/25 17:19 Total Protein 7.3 g/dL (6.6-8.7) 04/18/25 17:19 Albumin 4.1 g/dL (3.5-5.2) 04/18/25 17:19 Globulin 3.2 g/dL (1.3-4.6) 04/18/25 17:19 HCG, Qual Negative (Negative) 04/18/25 17:19 Urine Color Yellow (Yellow) 04/18/25 17:41 Urine Appearance Clear (CLEAR) 04/18/25 17:41 Urine pH 6.0 (5-7) 04/18/25 17:41 Ur Specific [place] 1.024 (1.005-1.030) 04/18/25 17:41 Urine Protein Negative (Negative) 04/18/25 17:41 Urine Glucose (UA) Negative (Normal) 04/18/25 17:41 Urine Ketones Negative (Negative) 04/18/25 17:41 Urine Blood Negative (Negative) 04/18/25 17:41 Urine Nitrate Negative (Negative) 04/18/25 17:41 Urine Bilirubin Negative (Negative) 04/18/25 17:41 Urine Urobilinogen 1.0 mg/dL (Negative) 04/18/25 17:41 Ur Leukocyte Esterase 1+ (Negative) A 04/18/25 17:41 Urine RBC None /hpf (0-2) 04/18/25 17:41 Urine WBC 5-10 /hpf (0-5) H 04/18/25 17:41 Ur Squamous Epith Cells 5-10 /hpf (0-5) H 04/18/25 17:41 Amorphous Sediment Not Reportable 04/18/25 17:41 Urine Bacteria 1+ /hpf (NONE) H 04/18/25 17:41 Discharge Plan Discharge Patient Disposition: Home Clinical Impression: Urinary tract infection Condition: Stable Prescriptions: New ciprofloxacin HCl 500 mg tablet 500 mg PO BID Qty: 14 0RF No Action ibuprofen [Advil] 200 mg Tablet 400 mg PO Q6H PRN (Reason: Fever Or Pain) Discharge Orders: Discharge ED (Routine); Ordered 04/18/25 Ordered By: Benedicto Abdi Referrals: Srikanth Sen MD [Primary Care Provider, [facility]] Patient Instructions: Patient Portal & Sowmya Instructions, Pyelonephritis Print Language: Latvian Coding Level of Care Code ED Integrated Circuit Fabricator for Chg Fwd Documented by User: Benedicto Abdi MD 04/18/25 19:12 HPI - Extremity Problem General: Chief complaint: Extremity Injury, Lower Stated complaint: Purvi Gaviria leg pain, buring when urinating Time Seen by Provider: 04/18/25 16:40 Related Data Home Medications ?Medication ?Instructions ?Recorded ?Confirmed ibuprofen 200 mg tablet (Advil) 400 mg PO Q6H PRN Fever Or Pain 02/12/25 04/18/25 Previous Rx's ?Medication ?Instructions ?Recorded ciprofloxacin HCl 500 mg tablet 500 mg PO BID #14 tabs 04/18/25 Allergies Allergy/AdvReac Type Severity Reaction Status Date / Time No Known Allergies Allergy Verified 04/18/25 16:10 PFS ED PFSH: Medical History LLL pneumonia Ovarian cyst Back pain with history of spinal surgery Scoliosis Family History Father Thao infection Mother No problems noted. Social History Smoking and tobacco/nicotine status: never used tobacco/nicotine Alcohol intake: never Substance/Drug Use: never Course Vital Signs: Vital signs: Vital Signs Temperature 98.8 F 04/18/25 16:05 Pulse Rate 98 04/18/25 19:21 Blood Pressure 122/65 04/18/25 19:21 Pulse Oximetry 100 04/18/25 19:21 Oxygen Delivery Me thod Room Air 04/18/25 16:05 MDM - Extremity (Nontraumatic) Medical Decision Making Signout from Dr. Lowry at 6 PM. Patient here with concerns for right knee injury and possible urinary tract infection. Awaiting test results. On reassessment I talked with the patient about her test results. Her x-ray shows no acute bony abnormality. Her urine does show signs of a mild urinary tract infection. Her heart rate was initially high at 102 but is resolved to the low 90s and high 80s at this time. She does have a elevation of white blood cell count of 15.3. Repeat exam reveals soft abdomen, normal heart rate. Will start her on ciprofloxacin 500 twice daily for 7 days as indicated and up-to-date. Will discharge at this time with precautions to return for worsening or changing symptoms. Lab Data 04/18/25 17:19 04/18/25 17:19 Radiology Impressions Knee X-Ray 04/18/25 18:04 IMPRESSION: No acute appearing bony abnormality. Maybe soft tissue injury medial upper right lower leg Laboratory Results WBC 15.32 10^3/uL (3.29-11.43) H 04/18/25 17:19 RBC 4.18 10^6/uL (3.85-5.65) 04/18/25 17:19 Hgb 12.10 g/dL (11.27-16.99) 04/18/25 17:19 Hct 36.1 % (36-47) 04/18/25 17:19 MCV 86.4 fl (85-98) 04/18/25 17:19 MCH 28.9 pg (27-33) 04/18/25 17:19 MCHC 33.5 g/dL (30-55) 04/18/25 17:19 RDW 12.9 % (12.1-15.1) 04/18/25 17:19 Plt Count 225 10^3/cmm (157-399) 04/18/25 17:19 MPV 10.0 fL (7.4-10.4) 04/18/25 17:19 Neut % (Auto) 82.1 % 04/18/25 17:19 Lymph % (Auto) 8.6 % 04/18/25 17:19 [place] % (Auto) 8.1 % 04/18/25 17:19 Eos % (Auto) 0.5 % 04/18/25 17:19 Baso % (Auto) 0.3 % 04/18/25 17:19 Neut # (Auto) 12.59 10^3/uL (1.8-7.7) H 04/18/25 17:19 Lymph # (Auto) 1.3 10^3/uL (0.8-4.8) 04/18/25 17:19 [place] # (Auto) 1.2 10^3/uL (0.2-0.9) H 04/18/25 17:19 Eos # (Auto) 0.1 10^3/uL (0.0-0.8) 04/18/25 17:19 Baso # (Auto) 0.1 10^3/uL (0.0-0.1) 04/18/25 17:19 Nucleated RBC % (auto) 0 % 04/18/25 17:19 Nucleated RBCs # 0.0 /100WBC 04/18/25 17:19 Sodium 132 mmol/L (136-145) L 04/18/25 17:19 Potassium 3.3 mmol/L (3.5-5.1) L 04/18/25 17:19 Chloride 98 mmol/L (98-107) 04/18/25 17:19 Carbon Dioxide 23 mmol/L (22-29) 04/18/25 17:19 Anion Gap 14.3 (5-19) 04/18/25 17:19 BUN 15 mg/dL (6-20) 04/18/25 17:19 Creatinine 0.5 mg/dL (0.5-0.9) 04/18/25 17:19 GFR Calculation 149.1 mL/min (90-130) H 04/18/25 17:19 Glucose 89 mg/dL (65-115) 04/18/25 17:19 Calculated Osmolality 274 mOsm/kg (285-295) L 04/18/25 17:19 Lactic Acid 0.8 mmol/L (0.5-2.2) 04/18/25 17:19 Calcium 8.6 mg/dL (8.5-10.5) 04/18/25 17:19 Total Bilirubin 0.4 mg/dL (0.15-1.2) 04/18/25 17:19 AST 13 U/L (0-32) 04/18/25 17:19 ALT 10 U/L (0-33) 04/18/25 17:19 Alkaline Phosphatase 89 U/L (35-105) 04/18/25 17:19 Total Protein 7.3 g/dL (6.6-8.7) 04/18/25 17:19 Albumin 4.1 g/dL (3.5-5.2) 04/18/25 17:19 Globulin 3.2 g/dL (1.3-4.6) 04/18/25 17:19 HCG, Qual Negative (Negative) 04/18/25 17:19 Urine Color Yellow (Yellow) 04/18/25 17:41 Urine Appearance Clear (CLEAR) 04/18/25 17:41 Urine pH 6.0 (5-7) 04/18/25 17:41 Ur Specific [place] 1.024 (1.005-1.030) 04/18/25 17:41 Urine Protein Negative (Negative) 04/18/25 17:41 Urine Glucose (UA) Negative (Normal) 04/18/25 17:41 Urine Ketones Negative (Negative) 04/18/25 17:41 Urine Blood Negative (Negative) 04/18/25 17:41 Urine Nitrate Negative (Negative) 04/18/25 17:41 Urine Bilirubin Negative (Negative) 04/18/25 17:41 Urine Urobilinogen 1.0 mg/dL (Negative) 04/18/25 17:41 Ur Leukocyte Esterase 1+ (Negative) A 04/18/25 17:41 Urine RBC None /hpf (0-2) 04/18/25 17:41 Urine WBC 5-10 /hpf (0-5) H 04/18/25 17:41 Ur Squamous Epith Cells 5-10 /hpf (0-5) H 04/18/25 17:41 Amorphous Sediment Not Reportable 04/18/25 17:41 Urine Bacteria 1+ /hpf (NONE) H 04/18/25 17:41 No radiology studies performed this visit Discharge Plan Discharge Patient Disposition: Home Clinical Impression: Urinary tract infection Condition: Stable Prescriptions: New ciprofloxacin HCl 500 mg tablet 500 mg PO BID Qty: 14 0RF No Action ibuprofen [Advil] 200 mg Tablet 400 mg PO Q6H PRN (Reason: Fever Or Pain) Discharge Orders: Discharge ED (Routine); Ordered 04/18/25 Ordered By: Benedicto Abdi Referrals: Srikanth Sen MD [Primary Care Provider, Family [facility]] Patient Instructions: Patient Portal & Sowmya Instructions, Pyelonephritis Print Language: Latvian Coding Level of Care Code ED Integrated Circuit Fabricator for Demetri Calloway
[2025-04-18] MEDS: SODIUM CHLORIDE 0.9% 1347.18 ML IV (17:49)
[2025-04-18 17:50] LABS: Hematocrit 36.1 % (36-47); Hemoglobin 12.10 g/dL (11.27-16.99); Mean Corpuscular HGB Conc 33.5 g/dL (30-55); Mean Corpuscular Hemoglobin 28.9 pg (27-33); Mean Corpuscular Volume 86.4 fl (85-98); Nucleated Red Blood Cells % 0 %; Platelet Count 225 10^3/cmm (157-399); Red Blood Count 4.18 10^6/uL (3.85-5.65); White Blood Count 15.32 10^3/uL (3.29-11.43)
[2025-04-18 18:02] LABS: Glucose Urine UA Negative (Normal); Nitrate Urine Negative (Negative); Specific Gravity, Urine 1.024 (1.005-1.030)
--- NOTE | 2025-04-18 18:04 | XRR_ITS ---
PROCEDURE INFORMATION: Exam: XR Right Knee Exam date and time: 04/18/2025 6:07 PM Age: 24 years old Clinical indication: Injury or trauma; Other: Hit RT knee on a rock; Blunt trauma; Right TECHNIQUE: Imaging protocol: Radiologic exam of the right knee. Views: 3 views. COMPARISON: No relevant prior studies available. FINDINGS: Bones/joints: No acute bony abnormalities. [place] to be a prominent vertical linear vascular marking proximal shaft tibia. Soft tissues: Some mottled increased density subcutaneous fat medial upper right lower leg could represent soft tissue injury. XR/XR knee RT 3V* [id number] IMPRESSION: No acute appearing bony abnormality. Maybe soft tissue injury medial upper right lower leg
[2025-04-18 18:05] LABS: HCG, Serum Qual Negative (Negative)
[2025-04-18 18:10] LABS: Lactic Sepsis W/Reflex 0.8 mmol/L (0.5-2.2)
[2025-04-18 18:11] LABS: Alanine Aminotransferase 10 U/L (0-33); Albumin Level 4.1 g/dL (3.5-5.2); Alkaline Phosphatase 89 U/L (35-105); Anion Gap 14.3 (5-19); Aspartate Amino Transferase 13 U/L (0-32); Blood Urea Nitrogen 15 mg/dL (6-20); Calcium 8.6 mg/dL (8.5-10.5); Carbon Dioxide 23 mmol/L (22-29); Chloride 98 mmol/L (98-107); Creatinine Clr Calc Pharmacy 120.8720; Globulin 3.2 g/dL (1.3-4.6); Glucose 89 mg/dL (65-115); Osmolality Calculated 274 mOsm/kg (285-295); Potassium 3.3 mmol/L (3.5-5.1); Sodium 132 mmol/L (136-145); Total Protein 7.3 g/dL (6.6-8.7)
[2025-04-18 18:12] LABS: Add Urine Microscopic? YES; UA Manual Slide Review YES
[2025-04-18 19:00] VITALS: BP 104/65; PULSE 93; O2SAT 100
[2025-04-18 19:21] VITALS: BP 122/65; PULSE 98; O2SAT 100
== END 2025-04-18 19:28 | disposition home or self-care (01) ==
PROVIDERS: Emergency Provider Family Medicine; PCP Family Medicine
DX: N39.0 Urinary tract infection, site not specified (principal)
CPT/HCPCS: 36415; 73562; 80053; 81000; 81001; 83605; 84703; 85025; 87040; 87400; 87426; 87880; 96360; 96361; 99284; J7030; J9999

== ENCOUNTER 2025-04-19 15:24 | Outpatient (CLI) | payer SELFPAY ==
--- NOTE | 2025-04-19 15:30 | US_ITS ---
WS: [id number] US transvaginal [id number] HISTORY: R ovarian cyst COMPARISON: 02/13/2025, CT 02/12/2025 Uterus: 6.4 cm x 5.0 cm x 4.1 cm. Uterus is retroverted. No fibroid or mass. Endometrium: 1.0 cm. Normal size with no increased vascularity. Right ovary: 2.6 cm x 2.3 cm x 2.6 cm. RIGHT ovary is normal size. Adjacent to the RIGHT ovary is a large mass with diffuse low-level echoes and no increased vascularity. There is through transmission. Mass with low-level echoes measures 8.0 x 7.9 x 5.2 cm. Left ovary: 3.9 cm x 2.3 cm x 2.5 cm. Normal size LEFT ovary with a few small follicles. The smaller low-attenuation mass seen on the recent CT associated with the LEFT ovary may have been a follicle that has resolved. Tiny amount of free fluid. US/US transvaginal [id number] IMPRESSION: 1. O RADS 2; almost certainly benign. Large mass RIGHT adnexa. Favor endometri ed as the most likely etiology. Hemorrhagic cyst within the differential. If n ot surgically excised follow-up ultrasound in 12 months is recommended. 2. No LEFT adnexal mass identified.
== END 2025-04-19 15:25 | disposition home or self-care (01) ==
LOC: RAD 15:26
PROVIDERS: PCP Family Medicine; Visit Provider Family Medicine
DX: N83.201 Unspecified ovarian cyst, right side (principal)
CPT/HCPCS: 76830

== ENCOUNTER → 2025-04-20 14:45 | Outpatient (BNVA) | payer SELFPAY | PROVIDERS: PCP Family Medicine; Visit Provider Registered Nurse Neonatal Intensive Care | DX: J02.9 Acute pharyngitis, unspecified (principal) | CPT/HCPCS: 87880 ==

== ENCOUNTER → 2025-05-31 13:54 | Outpatient (BNVA) | payer SELFPAY | PROVIDERS: PCP Family Medicine | DX: R30.0 Dysuria (principal); R39.9 Unspecified symptoms and signs involving the genitourinary system | CPT/HCPCS: 81000; 87086 ==

== ENCOUNTER → 2025-07-10 15:10 | Outpatient (BNVA) | payer SELFPAY | PROVIDERS: PCP Family Medicine; Visit Provider Registered Nurse Neonatal Intensive Care | DX: R30.0 Dysuria (principal) | CPT/HCPCS: 81000 ==

== ENCOUNTER 2025-08-19 08:12 | Emergency (ER) | payer SELFPAY ==
--- NOTE | 2025-08-19 08:14 | XR_ITS ---
WS: [id number] Portable AP upright chest, 08/19/2025 Clinical Data: dyspnea/cough Comparison: Two-view chest, 03/08/2025 Findings: No nodules, masses or effusions are seen. The heart is normal. The pulmonary vascularity is not increased. No pneumonia or pneumothorax is seen. There is a posterior thoracic fusion unchanged. XR/XR chest 1V portable [id number] Impression: Negative chest.
--- OUTSIDE RECORDS SUMMARY | 2025-08-19 08:21 | XMS_ITS | Encounter Summary ---
Author Organization [facility] Address [address] [place] [address] Care Team Providers Care Patient Registration Rep Name Role Phone Unavailable Primary Care Provider Unavailabl e Encounter Details Date Type Department Care Team (Latest Contact Info) Description 06/01/2001 Outpatient Historical [facility] Ophthalmology 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
--- OUTSIDE RECORDS SUMMARY | 2025-08-19 08:21 | XMS_ITS | Patient Health Record ---
Author Organization [facility] Address [address] [place] [address] Care Team Providers Care Sample Examiner Name Role Phone Mckinley LUCIO, Srikanth Primary Care Provider Unavailab patricio WAYNEHUMERA WELCH Unavailable [phone] RAULDONTA RONAN Unavailable [phone] Allergies No Known Allergies Results Component Value Reference Range Notes Urinalysis, Routine Reviewed date:06/30/2025 01:53:08 PM Interpretation: Performing Lab: Notes/Report: Urine-Color yellow Appearance clear Glucose - Bilirubin - Ketones - Specific [place] 1.015 Occult Blood - pH 6.0 Urine Protein - Urobilinogen,Semi-Qn - Nitrite, Urine - WBC Esterase - Urinalysis, Routine Reviewed date:05/19/2025 02:29:42 PM Interpretation: Performing Lab: Notes/Report: Urine-Color yellow Appearance clear Glucose - Bilirubin - Ketones - Specific [place] 1.015 Occult Blood - pH 6.0 Urine Protein - Urobilinogen,Semi-Qn - Nitrite, Urine - WBC Esterase 1+ Reason For Referral No Information Medications Medication SIG (Take, Route, Frequency, Duration) Notes Start Date End Date Status Doxycycline Hyclate 100 MG 1 tablet Orally Once a day; Duration: 30 days As needed immediately after intercourse, and 2nd tablet 12 hours later for UTI prevention 05/19/2025 09/15/2025 Active Social History Tobacco Use: Social History Observation Description Date Details (start date - stop date) Never Smoker NA - NA Tobacco Control (Standard) Question Answer Notes Tobacco use: Nonsmoker AUDIT-C (Standard) Question Answer Notes Did you have a drink containing alcohol in the p ast year? No Points 0 Interpretation Negative Vital Signs Heart Rate 78 /min 06/30/2025 Height-cm 152.4 cm 06/30/2025 Blood pressure diastolic 71 mm Hg 06/30/2025 Weight-kg 44.91 kg 06/30/2025 Height 60 in 06/30/2025 Blood pressure systolic 118 mm Hg 06/30/2025 Weight 99 lbs 06/30/2025 BMI 19.33 kg/m2 06/30/2025 Procedures Procedure Date Ordered Date Performed Result Body Sit e Bladder Scan 05/19/2025 N/A Bladder Scan 06/30/2025 06/30/2025 N/A Encounters Encounter Location Date Provider Diagnosis [facility] [address] [facility] [place] [address] 05/19/2025 RONAN PANTOJA Recurrent UTI N39.0 ; Encounter to establish care with new doctor Z76.89 ; Incomplete bladder emptying R33.9 and History of back surgery Z98.890 [place], [place] [address] [facility] [place] [address] 06/30/2025 RONAN PANTOJA Recurrent UTI N39.0 ; Incomplete bladder emptying R33.9 and History of back surgery Z98.[address] [facility] [address] [facility] [place] [address] 04/21/2025 HUMERA LIVINGSTON Assessments Encounter Date Diagnosis (ICD Code) Assessment Notes Treatment Notes Treatment Clinical Notes Section Notes 06/30/2025 Incomplete bladder emptying (ICD-10 - R33.9) 06/30/2025 Recurrent UTI (ICD-10 - N39.0) 05/19/2025 Recurrent UTI (ICD-10 - N39.0) 05/19/2025 Encounter to establish care with new doctor (ICD-10 - Z76.89) 06/30/2025 History of back surgery (ICD-10 - Z98.890) 05/19/2025 Incomplete bladder emptying (ICD-10 - R33.9) 05/19/2025 History of back surgery (ICD-10 - Z98.890) 05/19/2025 Other UA clear, PVR increased at 240ml. We have discussed behavioral modifications for recurrent UTI including timed and double voiding, increased water intake, supplementation with Cranberry extract and probiotics, preventing/treating constipation. Handout given to patient. Start probiotic with cranberry and post-coital abx. Discussed double voiding vs MEHNAZ to help empty bladder. She would like to try double voiding first, but if no improvement at follow up we will proceed with CIC education. All questions that were asked were answered. Patient is satisfied with plan of care. 06/30/2025 Other UA clear, PVR 174ml. She would like to continue with current regimen and double voiding. She plans of trying to get insurance coverage. She will RTC in 6 month or PRN sooner. Plan Of Treatment Pending Test Test Name Order Date Bladder Scan 05/19/2025 Next Appt Details Provider Name:RONAN PANTOJA, 0 01/05/2026 01:50:00 PM, [address] [place], [address], Medical (General) History Medical History History ICD Code denies Surgical History Surgery Date(Month/Year) scoliosis correction x2 03/24/2012 Hospitalization History Reason Date(Month/Year) kidney infection/ sepsis 01/2025
--- OUTSIDE RECORDS SUMMARY | 2025-08-19 08:21 | XMS_ITS | Clinical Summary ---
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 Gender Identity Not on file Sexual Orientation Not on file Last Filed Vital Signs Vital Sign Reading Time Taken Comments Blood Pressure 118/70 07/15/2014 1:32 PM DIETARY AIDE Pulse 96 07/15/2014 1:32 PM DIETARY AIDE Temperature 36.8 C (98.2 F) 07/15/2014 1:32 PM DIETARY AIDE Respiratory Rate - - Oxygen Saturation 98% 07/15/2014 1:32 PM DIETARY AIDE Inhaled Oxygen Concentration - - Weight 36.3 kg (80 lb) 07/15/2014 1:32 PM DIETARY AIDE Height 149.9 cm (4' 11 ) 07/15/2014 1:32 PM DIETARY AIDE Body Mass Index 16.16 07/15/2014 1:32 PM DIETARY AIDE Plan of Treatment Health Maintenance Due Date Last Done Comments DTAP/TDAP/TD VACCINES (5 - Tdap) 2009 01/10/2000, 06/15/1999, 04/20/1999, Additional history exists HPV VACCINES (1 - 3-dose series) 2013 CERVICAL CANCER SCREENING 2019 HPV/Cotest (21-29) 2019 PAP SMEAR 2019 INFLUENZA VACCINE (#1) 2025 HEPATITIS B VACCINES Completed 06/15/1999, 02/16/1999, 01/06/1999 Insurance [place] [id number] [facility] [id number] [place] [id number] [place]
[2025-08-19 08:26] VITALS: BP 143/70; PULSE 60; RESP 16; TEMP 36.4; O2SAT 100; BMI 20.4
[2025-08-19 08:42] LABS: Hematocrit 41.6 % (36-47); Hemoglobin 13.60 g/dL (11.27-16.99); Mean Corpuscular HGB Conc 32.7 g/dL (30-55); Mean Corpuscular Hemoglobin 28.3 pg (27-33); Mean Corpuscular Volume 86.7 fl (85-98); Nucleated Red Blood Cells % 0 %; Platelet Count 321 10^3/cmm (157-399); Red Blood Count 4.80 10^6/uL (3.85-5.65); White Blood Count 10.18 10^3/uL (3.29-11.43)
[2025-08-19 08:57] LABS: Alanine Aminotransferase 9 U/L (0-33); Albumin Level 4.4 g/dL (3.5-5.2); Alkaline Phosphatase 73 U/L (35-105); Anion Gap 14.7 (5-19); Aspartate Amino Transferase 15 U/L (0-32); Blood Urea Nitrogen 18 mg/dL (6-20); Calcium 9.8 mg/dL (8.5-10.5); Carbon Dioxide 27 mmol/L (22-29); Chloride 100 mmol/L (98-107); Globulin 2.6 g/dL (1.3-4.6); Glucose 99 mg/dL (65-115); Osmolality Calculated 288 mOsm/kg (285-295); Potassium 3.7 mmol/L (3.5-5.1); Sodium 138 mmol/L (136-145); Total Protein 7.0 g/dL (6.6-8.7)
--- NOTE | 2025-08-19 08:57 | USR_ITS ---
PROCEDURE INFORMATION: Exam: US Duplex Artery or Vein of the Abdominal and/or Reproductive Organs, Limited Ovaries Exam date and time: 08/19/2025 10:02 AM Age: 24 years old Clinical indication: Pelvic pain TECHNIQUE: Imaging protocol: Real-time duplex ultrasound scan of the arterial or venous flow with norris scale, color Doppler flow and spectral waveform analysis with image documentation. Limited duplex exam focused on the ovaries. Duplex exam was performed to evaluate for torsion and other vascular conditions. COMPARISON: US transvaginal [id number] 04/19/2025 3:37 PM FINDINGS: Right ovary/adnexa: Right ovary not identified separately from the large right adnexal lesion. Left ovary/adnexa: Unremarkable arterial and venous Doppler waveforms in the ovary. No findings to suggest ovarian torsion at this time. PROCEDURE INFORMATION: Exam: US Pelvis, Transvaginal, Non-Obstetric Exam date and time: 08/19/2025 10:02 AM Age: 24 years old Clinical indication: Pelvic pain TECHNIQUE: Imaging protocol: Real-time transvaginal pelvic (non-obstetric) ultrasound with image documentation. Transvaginal imaging was used for better evaluation of the endometrium, adnexa, and/or cervix. COMPARISON: US transvaginal [id number] 04/19/2025 3:37 PM FINDINGS: Uterus: Retroverted uterus. No fibroids identified. Endometrial thickness measures 11 mm, within normal limits. No increased endometrial vascularity or focal endometrial lesions identified. Unremarkable appearance of the cervix. Right ovary/adnexa: Large nonvascular right adnexal lesion again seen containing low-level internal echoes and through transmission. This lesion is similar in size measuring 7.2 x 6.1 x 4.7 cm on the current exam, compared with up to 8 cm on prior ultrasound. The right ovary is not seen separate from the large right adnexal lesion. Left ovary/adnexa: Left ovary measures 2.6 x 1.8 x 2.1 cm, volume 5 cc. Dominant follicle measuring up to 1.9 cm. Additional smaller subcentimeter follicles. Unremarkable ovarian blood flow demonstrated. Intraperitoneal space: No significant free fluid. US/US transvaginal [id number] IMPRESSION: 1. Right ovary is not identified separately from the large right adnexal lesion, however large adnexal lesions can predispose to ovarian torsion. Recommend correlation with symptoms. If clinically warranted, mining speculator consultation could be obtained. 2. Unremarkable left ovarian Doppler waveforms with no sonographic findings to suggest left ovarian torsion at this time. IMPRESSION: 1. Large nonvascular right adnexal lesion containing low-level internal echoes and through transmission. This lesion is similar in size to prior, measuring up to 7.2 cm. Appearance and persistence over time would favor a large endometrioma. Contrast-enhanced pelvic MRI could be obtained to further evaluate, if clinically warranted. 2. Dominant left ovarian follicle measuring up to 1.9 cm. 3. Remainder of the exam is unremarkable.
--- NOTE | 2025-08-19 09:02 | ED_ITS ---
HPI - Abdominal Pain 2 General: Chief Complaint: Abdominal Pain Stated Complaint: abd pain,cough Time Seen by Provider: 08/19/25 08:42 History of Present Illness: 24-year-old female presents emergency ro om complaining abdominal pain suprapubic discomfort states she has a history of endometriosis. She has not formally been seen she by gynecology she has had a couple of ultrasounds in the past. Her last menstrual period was 08/08 she does not believe she is she has some mild dysuria as well. She also has some nonproductive cough she has not had any fever she states she currently is on oral antibiotics for upper respiratory infection. Associated Symptoms: Reports dysuria; Denies chills and fever(s) Related Data Date of Last Menstrual Period: 08/08/25 Previous Rx's ?Medication ?Instructions ?Recorded albuterol sulfate 90 mcg/actuation 2 puff inhalation Q 6H PRN 08/14/25 aerosol inhaler shortness of breath or wheez ing #8.5 grams amoxicillin 875 mg-potassium 1 tab PO BID 7 days #14 t abs 08/14/25 clavulanate 125 mg tablet nnquhrtwntodruz-outnwghozxpweeu-YT 5 ml PO Q6H PRN col d symptoms #118 08/14/25 2 mg-30 mg-10 mg/5 mL oral syrup mL (Bromfed DM) diclofenac sodium 75 mg 75 mg PO Q12H PRN pain #20 t abs 08/19/25 tablet,delayed release Allergies Allergy/AdvReac Type Severity Reaction Status Date / Time No Known Allergies Allergy Verified 08/19/25 08:28 Review of Systems 2 Const: Denies: fever(s) or chills Card: Denies: chest pain Resp: Reports: non-productive cough; Denies: dyspnea GI: Denies: abdominal pain : Reports: dysuria and pelvic pain; Denies: flank pain, urinary frequency or urinary urgency Musc: Denies: neck pain or back pain Skin/Breast: Denies: rash PFSH ED 2 PFSH: Medical History LLL pneumonia Ovarian cyst Back pain with history of spinal surgery Scoliosis Family History Father Thao infection Mother No problems noted. Social History Smoking and tobacco/nicotine status: never used tobacco/nicotine Alcohol intake: never Substance/Drug Use: never Female Reproductive History: Date of last menstrual period: 08/08/25 Physical Exam 2 Const: COMMON NORMALS: no acute distress GENERAL APPEARANCE: cooperative and comfortable ORIENTATION/CONSCIOUSNESS: Yes awake, Yes oriented to person, Yes oriented to place and Yes oriented to time HENMT: COMMON NORMALS: normocephalic, atraumatic and hearing grossly normal bilaterally HEAD & SCALP: normocephalic and atraumatic Resp: COMMON NORMALS: normal respiratory effort, No retractions, No use of accessory muscles and clear to auscultation bilaterally AUSCULTATION: clear to auscultation bilaterally Cardio: COMMON NORMALS: regular rate, regular rhythm and No murmurs present (Cardio) RATE: regular rate RHYTHM: regular rhythm GI: COMMON NORMALS: Soft to palpation and No hepatosplenomegaly present A USCULTATION: Yes normoactive bowel sounds PALPATION: Yes Soft to palpation, No Tenderness to palpation present (GI), No Guarding due to palpation present (GI) and Yes No hepatosplenomegaly present Extremity: COMMON NORMALS: normal to inspection, capillary refill normal, no clubbing, cyanosis or edema, no calf tenderness and no pedal edema Neuro: SENSORIUM/ORIENTATION: Yes oriented to person, Yes oriented to place and Yes oriented to time Skin: COMMON NORMALS: no rashes or lesions noted GENERAL SKIN EXAM: no rashes or lesions noted Course 2 Vital Signs: Vital signs: Vital Signs Temperature 97.5 F L 08/19/25 08:26 Pulse Rate 77 08/19/25 12:59 Respiratory Rate 16 08/19/25 08:26 Blood Pressure 128/64 08/19/25 12:59 Pulse Oximetry 98 08/19/25 12:59 Oxygen Delivery Me thod Room Air 08/19/25 08:26 MDM - Abdominal Pain Medical Decision Making Medical decision making Social determinants: None significant I reviewed the patient's medical record. I reviewed the patient's current home meds. Alternate historians: None Differential diagnosis: Cystitis pyelonephritis cholecystitis pneumonia appendicitis Lab Review: Laboratory test no leukocytosis hemoglobin platelets normal chemistry panel negative serum beta-hCG also negative. Urine does not show any signs of cystitis. Flu COVID RSV negative. Imaging:Chest x-ray shows hardware from previous extensive spinal stabilization in the thoracic spine. Mild hyperinflation no cardiomegaly no effusions no infiltrates, no acute findings. Ultrasound demonstrates endometrioma similar to what was seen on previous pelvic ultrasound. Measures 7.2 cm. Remainder of exam by ultrasound unremarkable Assessment of risk Level of risk: Low Hospitalization considerations: No indication for acute hospitalization Reexamination: Pain improved with medications given Assessment and plan: Hemoglobin stable complete antibiotics previously prescribed. Will refer to [facility] for endometrioma. Return if has further problems. Discharged home with diclofenac to use as needed Lab Data 08/19/25 08:32 08/19/25 08:32 Labs/Radiology: Radiology Impressions Chest X-Ray 08/19/25 08:14 Impression: Negative chest. Transvaginal US 08/19/25 08:57 IMPRESSION: 1. Right ovary is not identified separately from the large right adnexal lesion, however large adnexal lesions can predispose to ovarian torsion. Recommend correlation with symptoms. If clinically warranted, gynecologist consultation could be obtained. 2. Unremarkable left ovarian Doppler waveforms with no sonographic findings to suggest left ovarian torsion at this time. IMPRESSION: 1. Large nonvascular right adnexal lesion containing low-level internal echoes and through transmission. This lesion is similar in size to prior, measuring up to 7.2 cm. Appearance and persistence over time would favor a large endometrioma. Contrast-enhanced pelvic MRI could be obtained to further evaluate, if clinically warranted. 2. Dominant left ovarian follicle measuring up to 1.9 cm. 3. Remainder of the exam is unremarkable. Laboratory Results WBC 10.18 10^3/uL (3.29-11.43) 08/19/25 08:32 RBC 4.80 10^6/uL (3.85-5.65) 08/19/25 08:32 Hgb 13.60 g/dL (11.27-16.99) 08/19/25 08:32 Hct 41.6 % (36-47) 08/19/25 08:32 MCV 86.7 fl (85-98) 08/19/25 08:32 MCH 28.3 pg (27-33) 08/19/25 08:32 MCHC 32.7 g/dL (30-55) 08/19/25 08:32 RDW 12.6 % (12.1-15.1) 08/19/25 08:32 Plt Count 321 10^3/cmm (157-399) 08/19/25 08:32 MPV 8.9 fL (7.4-10.4) 08/19/25 08:32 Neut % (Auto) 64.6 % 08/19/25 08:32 Lymph % (Auto) 21.6 % 08/19/25 08:32 [place] % (Auto) 7.4 % 08/19/25 08:32 Eos % (Auto) 5.5 % 08/19/25 08:32 Baso % (Auto) 0.7 % 08/19/25 08:32 Neut # (Auto) 6.58 10^3/uL (1.8-7.7) 08/19/25 08:32 Lymph # (Auto) 2.2 10^3/uL (0.8-4.8) 08/19/25 08:32 [place] # (Auto) 0.8 10^3/uL (0.2-0.9) 08/19/25 08:32 Eos # (Auto) 0.6 10^3/uL (0.0-0.8) 08/19/25 08:32 Baso # (Auto) 0.1 10^3/uL (0.0-0.1) 08/19/25 08:32 Nucleated RBC % (auto) 0 % 08/19/25 08:32 Nucleated RBCs # 0.0 /100WBC 08/19/25 08:32 Sodium 138 mmol/L (136-145) 08/19/25 08:32 Potassium 3.7 mmol/L (3.5-5.1) 08/19/25 08:32 Chloride 100 mmol/L (98-107) 08/19/25 08:32 Carbon Dioxide 27 mmol/L (22-29) 08/19/25 08:32 Anion Gap 14.7 (5-19) 08/19/25 08:32 BUN 18 mg/dL (6-20) 08/19/25 08:32 Creatinine 0.6 mg/dL (0.5-0.9) 08/19/25 08:32 GFR Calculation 120.8 mL/min (90-130) 08/19/25 08:32 Glucose 99 mg/dL (65-115) 08/19/25 08:32 Calculated Osmolality 288 mOsm/kg (285-295) 08/19/25 08:32 Calcium 9.8 mg/dL (8.5-10.5) 08/19/25 08:32 Total Bilirubin 0.4 mg/dL (0.15-1.2) 08/19/25 08:32 AST 15 U/L (0-32) 08/19/25 08:32 ALT 9 U/L (0-33) 08/19/25 08:32 Alkaline Phosphatase 73 U/L (35-105) 08/19/25 08:32 Total Protein 7.0 g/dL (6.6-8.7) 08/19/25 08:32 Albumin 4.4 g/dL (3.5-5.2) 08/19/25 08:32 Globulin 2.6 g/dL (1.3-4.6) 08/19/25 08:32 HCG, Qual Negative (Negative) 08/19/25 08:32 Urine Color Yellow (Yellow) 08/19/25 08:40 Urine Appearance Clear (CLEAR) 08/19/25 08:40 Urine pH 5.5 (5-7) 08/19/25 08:40 Ur Specific Clear 1.034 (1.005-1.030) H 08/19/25 08:40 Urine Protein Negative (Negative) 08/19/25 08:40 Urine Glucose (UA) Negative (Normal) 08/19/25 08:40 Urine Ketones Trace (Negative) 08/19/25 08:40 Urine Blood Negative (Negative) 08/19/25 08:40 Urine Nitrate Negative (Negative) 08/19/25 08:40 Urine Bilirubin Negative (Negative) 08/19/25 08:40 Urine Urobilinogen 1.0 mg/dL (Negative) 08/19/25 08:40 Ur Leukocyte Esterase Negative (Negative) 08/19/25 08:40 Urine RBC 0-2 /hpf (0-2) 08/19/25 08:40 Urine WBC 0-5 /hpf (0-5) 08/19/25 08:40 Ur Squamous Epith Cells 11-20 /hpf (0-5) H 08/19/25 08:40 Amorphous Sediment Not Reportable 08/19/25 08:40 Urine Bacteria None seen /hpf (NONE) 08/19/25 08:40 Hyaline Casts 0.40 /lpf 08/19/25 08:40 Influenza A (PCR) Negative (Negative) 08/19/25 08:40 Influenza Type B (PCR) Negative (Negative) 08/19/25 08:40 RSV (PCR) Negative (Negative) 08/19/25 08:40 SARS-CoV-2 (PCR) Negative (Negative) 08/19/25 08:40 All radiology interpretation(s) finalized by discharge Discharge Plan Discharge Patient Disposition: Home Clinical Impression: Endometrioma Condition: Stable Prescriptions: New diclofenac sodium 75 mg tablet,delayed release (DR/EC) 75 mg PO Q12H PRN (Reason: pain) Qty: 20 0RF No Action albuterol sulfate 90 mcg/actuation HFA aerosol inhaler 2 puff inhalation Q6H PRN (Reason: shortness of breath or wheezing) Qty: 8.5 0RF [id number]-[id number] [Bromfed DM] 2-30-10 mg/5 mL syrup 5 ml PO Q6H PRN (Reason: cold symptoms) Qty: 118 0RF amoxicillin-pot clavulanate 875-125 mg tablet 1 tab PO BID 7 Days Qty: 14 0RF Discharge Orders: Discharge ED (Routine); Ordered 08/19/25 Ordered By: Min Lowry Referrals: Srikanth Sen MD [Primary Care Provider, Family Practice] Discharge Diet: Usual diet Discharge Activity: Resume usual activity Patient Instructions: Abdominal Pain (ED), Opioid Safety, Pain Management, Patient Portal & [place] Instructions Activity Restrictions/Additional Instructions: Thank you for choosing [facility] for your healthcare needs today. It is very important that you follow up as instructed or that you return to the Emergency Department should you have concerns or if your condition changes or worsens in any way. Emergency department visits are focused on emergent conditions, in some cases you may require further evaluation on an outpatient basis. You are seen emergency room with pelvic pain. Repeat ultrasound shows endometrioma seen previously. Case management make arrangements for you to follow-up with gynecology uses diclofenac as needed. (Please note that included in your discharge packet is information concerning opioid safety and pain management. This information is given to all patients were discharged from the ER regardless of their discharge diagnosis or the medicines they usually take or are prescribed.) Print Language: Tunisian Coding Level of Care Code ED Clothing Manager for Demetri Calloway
[2025-08-19] MEDS: ondansetron 2 mg/ML SDV 2 mL 4 MG IVP (09:16)
--- NOTE | 2025-08-19 09:19 | PC.NURSE ---
pt changed into gown, emptied bladder for scan.
[2025-08-19 09:20] LABS: Respiratory Syncytial Virus Ce NEGATIVE (Negative); SARS-CoV-2 PCR NEGATIVE (Negative)
[2025-08-19 09:47] LABS: Glucose Urine UA Negative (Normal); Nitrate Urine Negative (Negative)
[2025-08-19 09:52] LABS: Add Urine Microscopic? YES
[2025-08-19 10:10] LABS: Specific Gravity, Urine 1.034 (1.005-1.030)
[2025-08-19 10:22] VITALS: BP 124/64; PULSE 57; O2SAT 97
[2025-08-19 12:42] LABS: HCG, Serum Qual Negative (Negative)
[2025-08-19 12:59] VITALS: BP 128/64; PULSE 77; O2SAT 98
== END 2025-08-19 13:00 | disposition home or self-care (01) ==
PROVIDERS: Emergency Provider Family Medicine; PCP Family Medicine
DX: N80.121 Deep endometriosis of right ovary (principal); Z11.52 Encounter for screening for COVID-19
CPT/HCPCS: 71045; 76830; 80053; 81001; 84703; 85025; 87637; 96374; 96375; 99284; J1885; J2405